=== PATIENT | male | born 1970 | race Hispanic/Latino ===

== ENCOUNTER → 2021-03-04 00:59 | Outpatient (CLI) | payer BC, SELFPAY ==
[2021-03-04 17:38] LABS: SARS-CoV-2 RNA PCR Negative
== END ==
PROVIDERS: PCP Physician Assistant; Visit Provider Internal Medicine Gastroenterology
DX: Z01.812 Encounter for preprocedural laboratory examination (principal); Z20.822 Contact with and (suspected) exposure to COVID-19
CPT/HCPCS: C9803; U0003; U0005

== ENCOUNTER 2021-03-07 00:40 | Day surgery (SDC) | payer BC, SELFPAY ==
[2021-02-18 13:06] VITALS: BMI 34.4
[2021-03-07 10:22] VITALS: BP 130/81; PULSE 72; RESP 18; TEMP 36.3; O2SAT 100; BMI 33.6
--- NOTE | 2021-03-07 10:41 | WPDGICN ---
Assessment and Plan Assessment and plan (1) Epigastric abdominal pain: Code(s): R10.13 - Epigastric pain Status: Acute Assessment and Plan: Patient has epigastric discomfort for the last 2 months. Etiology unclear. Symptoms could be related to gastritis or delayed gastric emptying. Plan is for EGD initially. Agree with trial of PPI therapy. Further recommendations will be given after endoscopy. GI Consult Note Consult date/time: 03/07/21 10:41 HPI: Michael Mcadams is a 50 year old male Presents for EGD. Patient reports for the last 2 months has had epigastric bloating and discomfort after all meals. This lasts for hours after eating food. It does not matter what food he eats. Symptoms persist. symptoms remain even if he is not eating. Patient has a past history of GE reflux disease and heartburn. He has been maintained on Nexium. Recent dose of 20 mg has been increased to40mg p.o. daily. Patient does have a history of chronic back pain for which she takes hydrocortisone on a routine basis. He denies any vomiting. He has recently noticed a small degree of nausea. Family history is noncontributory. He reports having a prior EGD many years ago that was unremarkable. Review of Systems Review of Systems: All systems reviewed & are unremarkable except as noted in HPI and below PMFSH Past Medical History Medical History Tobacco abuse Family History Family History (Updated 02/14/21 @ 11:35 by Kathrine Frost MA) Father Hypertension Mother Hypertension Diabetes mellitus Sibling Diabetes mellitus Social History Social History (Updated 02/14/21 @ 11:37 by Kathrine Frost MA) Smoking packs per day: 1 Smoking cigarettes per day: 20.0 Smoking status: Current every day smoker Tobacco type: cigarettes Alcohol intake: current Drinks per week: 1 Substance use: never Living arrangements: with family Additional occupation/education comments: [employer] Gender identity (if verbalized by the patient): Male Spiritual care concerns: No Agree to blood products: Yes Meds Home Medications and Allergies Home Medications Medication Instructions Recorded Confirmed Type esomeprazole magnesium 40 mg 40 mg PO DAILY #30 cap 02/14/21 02/18/21 Rx capsule,delayed release cyanocobalamin (vitamin B-12) 1,000 mcg BID 02/18/21 02/18/21 History ergocalciferol (vitamin D2) 1,250 mcg WEEKLY 02/18/21 02/18/21 History hydrocodone-acetaminophen 7.5 tablet PO BID PRN 02/18/21 02/18/21 History Allergies Allergy/AdvReac Type Severity Reaction Status Date / Time Penicillins Allergy Mild HIVES Verified 03/07/21 10:20 Vital Signs Vital Signs - 24 hr 03/07/21 10:22 Temperature 97.3 F L Pulse Rate 72 Respiratory Rate 18 Blood Pressure 130/81 Pulse Oximetry 100 Exam Narrative: Exam Narrative: Physical exam reveals patient be alert. Vital signs stable. HEENT exam unremarkable. Patient is anicteric. Lungs are clear to auscultation and percussion. Heart is without murmur or extra sounds. Abdominal exam bowel sounds are present soft nontender with no organomegaly. Digital external rectal exam deferred at this time.
--- NOTE | 2021-03-07 10:43 | WPDANESEPPF ---
Anes - Initial Pre Proc Eval Procedure: Operation Date: 03/07/21 11:30 Proposed Procedures p Esophagogastroduodenoscopy - Reese Maldonado MD Date/Time: 03/07/21 10:43 Surgeon: Reese Maldonado MD Pre Op Diagnosis: bloating, epigastric pain Patient Data Age: 50 Gender: M Height: 1.83 m Weight: 112.5 kg Last Vital Signs Temp 36.3 C L 03/07/21 10:22 Pulse 72 03/07/21 10:22 Resp 18 03/07/21 10:22 BP 130/81 03/07/21 10:22 Pulse Ox 100 03/07/21 10:22 Allergies Allergy/AdvReac Type Severity Reaction Status Date / Time Penicillins Allergy Mild HIVES Verified 03/07/21 10:20 Home Medications Medication Instructions Recorded Confirmed Type esomeprazole magnesium 40 mg 40 mg PO DAILY #30 cap 02/14/21 02/18/21 Rx capsule,delayed release cyanocobalamin (vitamin B-12) 1,000 mcg BID 02/18/21 02/18/21 History ergocalciferol (vitamin D2) 1,250 mcg WEEKLY 02/18/21 02/18/21 History hydrocodone-acetaminophen 7.5 tablet PO BID PRN 02/18/21 02/18/21 History Patient hx anesthesia problems: none Family hx anesthesia problems: none PMFSH Past Medical History Medical History Tobacco abuse Family History Family History Father Hypertension Mother Hypertension Diabetes mellitus Sibling Diabetes mellitus Social History Social History Smoking packs per day: 1 Smoking cigarettes per day: 20.0 Smoking status: Current every day smoker Tobacco type: cigarettes Alcohol intake: current Drinks per week: 1 Substance use: never Living arrangements: with family Additional occupation/education comments: [employer] Gender identity (if verbalized by the patient): Male Spiritual care concerns: No Agree to blood products: Yes Anes - Eval Final PreProcedure Day of Procedure 03/07/21 10:43 Patient weight: obese Heart: regular rate and rhythm Lungs: decreased breath sounds Airway: Mallampati scale class 1 Neurological: alert and oriented Last oral intake: >/= 8 hours ASA classification: III Emergent: no Anesthetic plan: proceed Anesthesia type and monitoring: general GIVS and standard monitoring Informed Consent: The patient's anesthetic plan and its attendant risks and benefits were discussed with the patient/family/POA. Questions were solicited and answers provided to the satisfaction of the patient/family/POA.
[2021-03-07] MEDS: LACTATED RINGERS 1,000 ML 150 ML IV CONT (10:50)
[2021-03-07] MEDS: BENZOCAINE (*SP) 60 ML SPRAY CAN (HURRICAINE) 1 SPRAY MUCOUS MEM (11:43)
[2021-03-07 11:58] VITALS: BP 97/54; PULSE 73; RESP 21; O2SAT 97
[2021-03-07 12:08] VITALS: BP 98/59; PULSE 70; RESP 20; O2SAT 96
[2021-03-07 12:18] VITALS: BP 100/98; PULSE 68; RESP 18; O2SAT 100
[2021-03-07 12:28] VITALS: BP 115/74; PULSE 66; RESP 17; O2SAT 100
== END 2021-03-07 12:30 | disposition home or self-care (01) ==
PROVIDERS: PCP Physician Assistant; Visit Provider Internal Medicine Gastroenterology
PROC: 0DJ08ZZ Inspection of Upper Intestinal Tract, Via Natural or Artificial Opening Endoscopic (ICD-10-PCS; CPT 43235; principal; 2021-03-07 11:30)
DX: R10.13 Epigastric pain (principal); K21.9 Gastro-esophageal reflux disease without esophagitis; F17.200 Nicotine dependence, unspecified, uncomplicated
CPT/HCPCS: 43239; 87081; J2704; J7120

== ENCOUNTER 2021-03-26 09:33 | Outpatient (CLI) | payer BC, SELFPAY ==
--- NOTE | ~2021-03-26 | NM_ITS ---
EXAM: NM gastric emptying study DATE: 03/26/2021 14:28 INDICATION: Epigastric pain TECHNIQUE: A gastric emptying study was performed using the methodology of Luz LEBLANC, et al. J Nucl Med 2007; 48:568-572. The patient was given a meal consisting of 2 scrambled eggs labeled with 1 mCi Tc-99m sulfur colloid, 2 slices of toast, two packages of jam, and approximately 120 mL of water. Si multaneous anterior and posterior 1-min images of the abdomen were obtained with the patient supine a t multiple time points over a total period of 4 hours. The geometric mean of anterior and posterior v iews was determined, and the percentage retention was calculated for each time point. COMPARISON: None. FINDINGS: Gastric retention of the radiotracer-labeled meal was 55%, 34%, and 4% at the 1-hour, 2-hour, and 4-h our time points, respectively. With this technique, apparent rapid gastric emptying is suggested by < 30% gastric retention at 1 hour. Delayed gastric emptying is defined by gastric retention of >90% at 1 hour, >60% retention at 2 hours, or >10% retention at 4 hours. IMPRESSION: 1. Normal gastric emptying. Reviewed, dictated and finalized at location A. IMPRESSION: 1. Normal gastric emptying.
== END 2021-03-26 09:34 | disposition home or self-care (01) ==
PROVIDERS: PCP Physician Assistant; Visit Provider Internal Medicine Gastroenterology
DX: R10.13 Epigastric pain (principal)
CPT/HCPCS: 78264; A9541

== ENCOUNTER 2023-12-27 14:39 | Outpatient (CLI) | payer OTHER, SELFPAY ==
--- NOTE | 2023-12-27 | ECG_ITS ---
SEE SCANNED COPY FOR CONFIRMED REPORT MTDD
[2023-12-27 15:21] LABS: Mean Corpuscular Hemoglobin 30.5 pg (26-34); Mean Corpuscular Volume 89.7 fl (80-100); Mean Platelet Volume 11.5 fl (7.4-10.4); Platelet Count Result 214 k/mm3 (150-375); Red Blood Count 5.24 M/mm3 (4.6-6.20); Red Cell Distribution Width 14.4 % (11.5-14.5); White Blood Count 7.1 K/mm3 (4.5-10.0)
[2023-12-27 15:30] LABS: Alanine Aminotransferase 18 U/L (6-50); Albumin Level 4.1 g/dL (3.5-5.1); Alkaline Phosphatase 65 U/L (38-126); Anion Gap 6 mmol/L (4-12); Aspartate Amino Transferase 21 U/L (17-59); Bilirubin,Total 0.5 mg/dL (0.2-1.3); Blood Urea Nitrogen 9 mg/dL (9-20); Carbon Dioxide 24 mmol/L (22-30); Chloride 106 mmol/L (98-107); Estimated Glomerular Filt Rate > 60; Glucose 257 mg/dL (65-110); Potassium 4.1 mmol/L (3.4-5.0); Sodium 136 mmol/L (137-145)
== END 2023-12-27 14:40 | disposition home or self-care (01) ==
PROVIDERS: PCP Physician Assistant; Visit Provider Orthopaedic Surgery
DX: Z01.818 Encounter for other preprocedural examination (principal)
CPT/HCPCS: 36415; 80053; 85027; 93005

== ENCOUNTER 2024-04-11 11:32 | Outpatient (CLI) | payer BC, SELFPAY ==
[2024-04-11 12:11] LABS: Hematocrit 44.7 % (42.0-52.0); Hemoglobin 15.1 g/dL (14.0-18.0); Mean Corpuscular HGB Conc 33.8 g/dl (32-36); Mean Corpuscular Hemoglobin 30.8 pg (26-34); Mean Corpuscular Volume 91.2 fl (80-100); Mean Platelet Volume 11.4 fl (7.4-10.4); Platelet Count Result 243 k/mm3 (150-375); Red Cell Distribution Width 14.6 % (11.5-14.5); White Blood Count 7.4 K/mm3 (4.5-10.0)
[2024-04-11 12:12] LABS: Alanine Aminotransferase 21 U/L (6-50); Albumin Level 4.2 g/dL (3.5-5.1); Alkaline Phosphatase 77 U/L (38-126); Anion Gap 7 mmol/L (4-12); Aspartate Amino Transferase 24 U/L (17-59); Bilirubin,Total 0.3 mg/dL (0.2-1.3); Blood Urea Nitrogen 16 mg/dL (9-20); Calcium 9.5 mg/dL (8.4-10.2); Carbon Dioxide 29 mmol/L (22-30); Chloride 102 mmol/L (98-107); Estimated Glomerular Filt Rate > 60; Glucose 205 mg/dL (65-110); Sodium 138 mmol/L (137-145)
== END 2024-04-11 11:33 | disposition home or self-care (01) ==
LOC: ANHLAB 11:33
PROVIDERS: PCP Physician Assistant; Visit Provider Orthopaedic Surgery
DX: Z01.818 Encounter for other preprocedural examination (principal)
CPT/HCPCS: 36415; 80053; 85027

== ENCOUNTER 2025-07-13 02:54 | Day surgery (SDC) | payer BC, SELFPAY ==
[2025-06-28 10:26] VITALS: BMI 34.6
--- OUTSIDE RECORDS SUMMARY | 2025-07-13 02:57 | XMS_ITS | Encounter Summary ---
Author Organization [facility] Health Address [address] [place] [address] Care Team Providers Care Weighmaster Name Role Phone Seven Macias MD Primary Care Provider [phone] Encounter Details Date Type Department Care Team (Late st Contact Info) Description 09/27/2024 Lab Requisition [facility] [address], [place] [id number] Simeon Guzman MD 4 [facility] [address] [place] [address] Radiculopathy, cervical region Social History Tobacco Use Types Packs/Day Years Used Date Smoking Tobacco: Never Assessed AUDIT-C Answer Date Recorded Q1: How often do you have a drink containing alcohol? Never 09/29/2024 Q2: How many drinks containi ng alcohol do you have on a typical day when you are drinking? Patient does not drink Q3: How often do you have si x or more drinks on one occasion? Never 09/29/2024 Overall Financial Resource Strain (CARDIA) Answe r Date Recorded How hard is it for you to pa y for the very basics like food, housing, medical care, and heating? Somewhat hard 09/29/2024 [facility] - Occupational Stress Questionnaire Answer Date Recorded Do you feel stress - tense, restless, nervous, or anxious, or unable to sleep at night because your mind is troubled all the time - these days? Not at all 09/29/2024 Hunger Vital Sign Answer Date Recorded Within the past 12 months, y ou worried that your food would run out before you got the money to buy more. Never true 09/29/19 25 Within the past 12 months, t he food you bought just didn't last and you didn't have money to get more. Never true 09/29/2024 PRAPARE - Transportation Answer Date Re corded In the past 12 months, has l ack of transportation kept you from medical appointments or from getting medications? No 02/2025 In the past 12 months, has l ack of transportation kept you from meetings, work, or from getting things needed for daily living? No 09/29/2024 Housing Stability Vital Sign Answer Jan e Recorded In the last 12 months, was t here a time when you were not able to pay the mortgage or rent on time? Yes 09/29/2024 In the past 12 months, how m any times have you moved where you were living? 0 09/29/2024 At any time in the past 12 m [facility], were you homeless or living in a fdc (including now)? No 09/29/2024 Sex and Gender Information Value Date Recorded Sex Assigned at Not on file Legal Sex Male 4:02 PM [employer] Gender Identity Not on file Sexual Orientation Not on file documented as of this encounter Functional Status * Functional and Cognitive Status Question Answer Date of Assessment Author Is person deaf or have vivek us hearing difficulty? No 09/29/2024 2:23 PM Luci Reid RN Is person blind or have seri ous difficulty seeing? No 09/29/2024 2:23 PM Luci Reid RN Does person have serious difficulty walking/climbing stairs? Yes 09/29/2024 2:23 PM Luci Reid RN Does person have difficulty dressing/bathing? No 09/29/2024 2:23 PM Luci Reid RN Does person have difficulty doing errands alone? No 09/29/2024 2:23 PM Luci Reid RN Does person have difficulty concentrating/remembering/making decisions? No 09/29/2024 2:23 PM Luci Reid RN * Question Answer Date of Assessment Author Q1: How often do you have a drink containing alcohol? Never 09/29/2024 6:54 AM Liliana Souza RN Q2: How many drinks containing alcohol do you have on a typical day when you are drinking? Patient does not drink 09/29/2024 6:54 AM Liliana Souza RN Q3: How often do you have six or more drinks on one occasion? Never 09/29/2024 6:54 AM Liliana Souza RN * AUDIT-C Score Answer Date of Assessment Author 0 09/29/2024 6:54 AM Ernie Souza RN documented as of this encounter Plan of Treatment Not on file documented as of this encounter Procedures Procedure Name Priority Date/Time Associated Diagnosis Comments PT PTT PANEL STAT 09/27/2024 2:49 PM [employer] Radiculopathy, cervical region CBC W AUTO DIFFERENTIAL STAT 09/27/2024 2:49 PM [employer] Radiculopathy, cervical region BASIC METABOLIC PANEL (CALCIUM TOTAL) STAT 09/27/2024 2:49 PM [employer] Radiculopathy, cervical region documented in this encounter Results * (ABNORMAL) PT PTT PANEL (09/27/2024 2:49 PM [employer] WORK[employer]) PT 12.0(L) 12.1 - 14.8 sec 09/27/2024 3:04 PM [employer] [facility] INR 0.9 0.9 - 1.1 09/27/2024 3:04 PM [employer] [facility] PTT 30.7 23.0 - 38.4 sec 09/27/2024 3:04 PM [facility] Blood BLOOD SPECIMEN / Unknown Venipuncture / Unknown 09/27/2024 2:49 PM [employer] 09/27/2024 2:51 PM [employer] Narrative [facility] - 09/27/2024 3:04 PM [employer] Conventional Warfarin Anticoagulant Therapy: INR Reference Range: 2.0-3.0 Intensive Warfarin Anticoagulant Therapy: INR Reference Range: 2.5-3.5 Heparin Therapeutic Range for PTT: 69.0 - 110.0 seconds. Simeon Guzman MD LAB - COAGULATION ORDERABLES F inal Result Performing Organization Address [facility] Co de Phone Number [facility] [address] [place] [address] * (ABNORMAL) BASIC METABOLIC PANEL (CALCIUM TOTAL) (09/27/2024 2:49 PM [employer]) Glucose 126(H) 70 - 99 mg/dL 09/27/2024 3:08 PM [facility] Sodium 137 136 - 145 mmol/L 09/27/2024 3:08 PM [facility] Potassium 4.4 3.5 - 5.1 mmol/L 09/27/2024 3:08 PM [facility] Chloride 103 98 - 107 mmol/L 09/27/2024 3:08 PM [facility] CO2 27 22 - 29 mmol/L 09/27/2024 3:08 PM [facility] Calcium 9.6 8.4 - 10.4 mg/dL 09/27/2024 3:08 PM [facility] Anion Gap 7 6 - 16 mmol/L 09/27/2024 3:08 PM [facility] BUN 12 7 - 26 mg/dL 09/27/2024 3:08 PM [facility] Creatinine 0.87 0.72 - 1.25 mg/dL 09/27/2024 3:08 PM [facility] eGFR by CKD-EPI >90 >=90 mL/min/1.7 3 m2 09/27/2024 3:08 PM [facility] Blood BLOOD SPECIMEN / Unknown Venipuncture / Unknown 09/27/2024 2:49 PM [employer] 09/27/2024 2:51 PM [facility] Simeon Guzman MD LAB - CHEMISTRY ORDERABLES Fin al Result Performing Organization Address [facility] Co de Phone Number [facility] [address] [place] [id number] * CBC WITH DIFFERENTIAL (09/27/2024 2:49 PM [employer] WORK[employer]) WBC 7.9 4.0 - 10.7 x10E9/L 09/27/2024 3:02 PM [facility] RBC Count 5.00 4.30 - 5.80 x10E12/L 09/27/2024 3:02 PM [facility] Hemoglobin 15.1 13.3 - 17.5 g/dL 09/27/2024 3:02 PM [facility] Hematocrit 44.7 38.7 - 51.1 % 09/27/2024 3:02 PM [facility] MCV 89.4 80.0 - 98.0 fL 09/27/2024 3:02 PM [facility] MCH 30.2 26.7 - 33.6 pg 09/27/2024 3:02 PM [facility] MCHC 33.8 31.7 - 36.3 g/dL 09/27/2024 3:02 PM [facility] RDW-CV 14.3 11.3 - 14.8 % 09/27/2024 3:02 PM [facility] Platelet Count 274 150 - 420 x10E9/L 09/27/2024 3:02 PM [facility] MPV 11.4 7.8 - 11.4 fL 09/27/2024 3:02 PM [facility] Neutrophil % 57.2 41.0 - 74.0 % 09/27/2024 3:02 PM [facility] Lymphocyte % 32.2 17.0 - 47.0 % 09/27/2024 3:02 PM [facility] Monocyte % 6.5 3.0 - 11.0 % 09/27/2024 3:02 PM [facility] Eosinophil % 3.4 0.0 - 7.0 % 09/27/2024 3:02 PM [facility] Basophil % 0.4 0.0 - 1.6 % 09/27/2024 3:02 PM [facility] Immature Granulocytes % 0.3 0.0 - 1.0 % 09/27/2024 3:02 PM [facility] Neutrophil Absolute 4.51 1.60 - 7.50 x10E9/L 09/27/2024 3:02 PM [facility] Lymphocyte Absolute 2.54 1.00 - 4.40 x10E9/L 09/27/2024 3:02 PM [facility] Monocyte Absolute 0.51 0.15 - 1.00 x10E9/L 09/27/2024 3:02 PM [employer] [facility] Eosinophil Absolute 0.27 0.00 - 0.60 x10E9/L 09/27/2024 3:02 PM [employer] [facility] Basophil Absolute 0.03 0.00 - 0.13 x10E9/L 09/27/2024 3:02 PM [employer] [facility] Blood BLOOD SPECIMEN / Unknown 09/27/2024 2:49 PM [employer] 09/27/2024 2:51 PM [employer] us Simeon Guzman MD LAB - HEMATOLOGY ORDERABLES Fi nal Result Performing Organization Address City/State/[facility] Co de Phone Number [facility] [address] [place], [place] [phone] documented in this encounter Visit Diagnoses Diagnosis Radiculopathy, cervical region Brachial neuritis or radiculitis nos documented in this encounter Care Teams Weighmaster Relationship Specialty [place] [address] [place] [phone] PCP - General Gastroenterology 09/04/22 documented as of this encounter
--- OUTSIDE RECORDS SUMMARY | 2025-07-13 02:57 | XMS_ITS | Data Portability ---
Author Organization [facility] Address [address] [place] [address] Assessment No assessment recorded. Plan of Treatment Reminders Order Date Submit Date Provider Last Modified By Organization Details Last Modified Time Details Appointments None recorded. Lab HbA1c (hemoglobin A1c), blood 2024 025 [email or web address] In-Office Order, Internal Use Only DO Not Attach Compendium DO Not Attach Compendium, Do Not Delete/merge, [id number] 17:27:40 drug screen, 14 drugs (detectimed ), urine 2024 025 [facility], [address] [facility], [address], [place], [address], 5 19:14:41 HbA1c (hemoglobin A1c), blood 2023 024 JIMENA In-Office Order, Internal Use Only DO Not Attach Compendium DO Not Attach Compendium, Do Not Delete/merge, [id number] 16:32:34 HbA1c (hemoglobin A1c), blood 2023 024 [email or web address] In-Office Order, Internal Use Only DO Not Attach Compendium DO Not Attach Compendium, Do Not Delete/merge, [id number] 16:21:21 HbA1c (hemoglobin A1c), blood 2022 023 [facility], [address] [facility], [address], [place], [address], 4 10:15:36 CBC 2022 023 [facility], [address] [place] [address], [address], [place], [address], 4 06:18:35 CMP, serum or plasma 2022 023 [email or web address] [address] [place] [address], [facility] [address], [place], [address], 3 10:02:46 PSA, total, serum or plasma 2022 023 [facility], [address] [place] [address], [address], [place], [address], 4 10:15:37 vitamin D, 25-hydroxy, total, serum 2022 023 [facility], [address] [place] [address], [address], [place], [address], 4 10:15:38 Referral None recorded. Procedures None recorded. Surgeries None recorded. Imaging None recorded. Medication Orders metformin 500 mg tablet 2024 025 [facility] #[id number], [address] [place], [place], [id number], 5 15:40:35 hydrocodone 10 mg-acetamin ophen 325 mg tablet 2024 025 [facility] #[id number], [address] [place], [place], [id number], 5 15:40:40 esomeprazol e magnesium 40 mg capsule,del ayed release 2024 025 [facility] #[id number], [address] [place], [place], [id number], 5 15:08:49 ciprofloxac in 500 mg tablet 2023 [facility] #49070, [address] [place], [place], [id number], 4 12:52:52 Ventolin HFA 90 mcg/actuati on aerosol inhaler 2023 [facility] #[id number], [address] [place], [place], [id number], 4 12:52:52 ibuprofen 800 mg tablet 2023 [facility] #44765, [address] [place], [place], [id number], 4 16:14:30 cyclobenzap rine 10 mg tablet 2023 [facility] #75714, [address] [place], [place], [id number], 4 16:14:29 metformin 500 mg tablet [address] [facility] #36089, [address] [place], [place], [id number], 4 16:23:11 hydrocodone 7.5 mg-acetamin ophen 325 mg tablet 2023 [facility] #[id number] [place], [place], [id number], 4 16:17:47 hydrocodone 10 mg-acetamin ophen 325 mg tablet 2023 [facility] #[id number] [place], [place], [id number], 16:21:39 Patient TargetsNo targets recorded. Patient Instructions Encounter Date Encounter Id Patient Instructions Last Modified By Organization Details Last Modified Time 06/03/2023 [id number] Quitting Tobacco : Care Instructions [email or web address] Not available 06/03/2023 16:24:05 Quitting Tobacco : Care Instructions [email or web address] Not available 06/03/2023 16:24:05 back care and preventing injuries: care instructions Not available 06/03/2023 16:24:05 gastroesophageal reflux disease (GERD): care instructions [email or web address] Not available 06/03/2023 16:24:05 high cholesterol : care instructions [email or web address] Not available 06/03/2023 16:24:05 A healthy lifest yle: care instructions [email or web address] Not available 06/03/2023 16:24:05 12/16/2023 [id number] learning about t ype 2 diabetes Not available 12/16/2023 16:14:45 type 2 diabetes: care instructions [email or web address] Not available 12/16/2023 16:14:45 03/16/2024 [id number] A healthy lifest yle: care instructions [email or web address] Not available 03/16/2024 16:14:20 Quitting Tobacco : Care Instructions [email or web address] Not available 03/16/2024 16:14:20 learning about t ype 2 diabetes [email or web address] Not available 03/16/2024 16:14:20 type 2 diabetes: care instructions [email or web address] Not available 03/16/2024 16:14:20 back care and preventing injuries: care instructions [email or web address] Not available 03/16/2024 16:14:20 08/21/2024 [id number] When You Want to Lose Weight: Care Instructions [email or web address] Not available 08/21/2024 12:52:44 A healthy lifest yle: care instructions Not available 08/21/2024 12:52:44 chronic sinusiti s: care instructions [email or web address] Not available 08/21/2024 12:52:44 high cholesterol : care instructions [email or web address] Not available 08/21/2024 12:52:44 12/14/2024 [id number] learning about t ype 2 diabetes [email or web address] Not available 12/14/2024 17:27:40 type 2 diabetes: care instructions [email or web address] Not available 12/14/2024 17:27:40 back care and preventing injuries: care instructions [email or web address] Not available 12/14/2024 15:35:37 gastroesophageal reflux disease (GERD): care instructions [email or web address] Not available 12/14/2024 15:35:37 high cholesterol : care instructions [email or web address] Not available 12/14/2024 15:35:37 When You Want to Lose Weight: Care Instructions [email or web address] Not available 12/14/2024 15:35:37 Reason for Referral None Reported. Results Created Date Observation Date Name Description Value Unit Range Abnormal Flag Note LastModifiedBy Organization Detail LastModifiedTime 09/16/19 24 09/16/2023 COMP. METAB OLIC PANEL (14) glucose 196 mg/dL 70-99 above high normal Not Available [facility] [address] [place] [address], [address], 09/17/2023 06:18:35 09/16/19 24 09/16/2023 COMP. METAB OLIC PANEL (14) BUN 9 mg/dL 6-24 Not Available [facility] [address] [place], [address], 09/17/2023 06:18:35 09/16/19 24 09/16/2023 COMP. METAB OLIC PANEL (14) creatinine 0.79 mg/dL 0.76-1 .27 Not Available [facility] [address] [place], [address], 09/17/2023 06:18:35 09/16/1909/16/2023 COMP. METAB OLIC PANEL (14) eGFR 107 >=60 Units for eGFR value s are mL/mi n/1.7 3 The eGFR Calcu latio n has not been valid ated for patie nts under the age of 18. If test resul ts are displ ayed for a patie nt under the age of 18, disre anabell that value . Not Available [facility] [address] [place], [address], 09/17/2023 06:18:35 09/16/19 24 09/16/2023 COMP. METAB OLIC PANEL (14) BUN/creatini ne ratio 12 9-20 Not Available [facility] [address] [place] [address], [address], 09/17/2023 06:18:35 09/16/19 24 09/16/2023 COMP. METAB OLIC PANEL (14) sodium 138 mmol/ L 134-14 4 Not Available [facility] [address] [place] [address], [address], 09/17/2023 06:18:35 09/16/19 24 09/16/2023 COMP. METAB OLIC PANEL (14) potassium 4.0 mmol/ L 3.5-5. 2 Not Available [facility] [address] [place] [address], [address], 09/17/2023 06:18:35 09/16/19 24 09/16/2023 COMP. METAB OLIC PANEL (14) chloride 102 mmol/ L 96-106 Not Available [facility] [address] [place] [address], [address], 09/17/2023 06:18:35 09/16/19 24 09/16/2023 COMP. METAB OLIC PANEL (14) carbon dioxide, total 25 mmol/ L 20-29 Not Available [facility] [address] [place] [address], [address], 09/17/2023 06:18:35 09/16/19 24 09/16/2023 COMP. METAB OLIC PANEL (14) calcium 9.5 mg/dL 8.7-10 .2 Not Available [facility] [address] [place] [address], [id number], 09/17/2023 06:18:35 09/16/19 24 09/16/2023 COMP. METAB OLIC PANEL (14) protein, total 7.0 g/dL 6.0-8. 5 Not Available [facility] [address] [place], [address], 09/17/2023 06:18:35 09/16/19 24 09/16/2023 COMP. METAB OLIC PANEL (14) albumin 4.2 g/dL 3.8-4. 9 Not Available [facility] [address] [place], [address], 09/17/2023 06:18:35 09/16/19 24 09/16/2023 COMP. METAB OLIC PANEL (14) globulin, total 2.8 g/dL 1.5-4. 5 Not Available [facility] [address] [place], [address], 09/17/2023 06:18:35 09/16/19 24 09/16/2023 COMP. METAB OLIC PANEL (14) A/G ratio 1.0 1.2-2. 2 below low normal Not Available [facility] [address] [place], [address], 09/17/2023 06:18:35 09/16/19 24 09/16/2023 COMP. METAB OLIC PANEL (14) bilirubin, total 0.3 mg/dL 0.0-1. 2 Not Available [facility] [address] [place], [address], 09/17/2023 06:18:35 09/16/19 24 09/16/2023 COMP. METAB OLIC PANEL (14) alkaline phosphatase 68 IU/L 44-121 Not Available [facility] Department [address] [place], [address], 09/17/2023 06:18:35 09/16/19 24 09/16/2023 COMP. METAB OLIC PANEL (14) AST (SGOT) 12 IU/L 0-40 Not Available [facility] [address] [place], [address], 09/17/2023 06:18:35 09/16/19 24 09/16/2023 COMP. METAB OLIC PANEL (14) ALT (SGPT) 13 IU/L 0-44 Not Available [facility] [address] [place] [address], [address], 09/17/2023 06:18:35 09/16/19 24 09/16/2023 CBC, PLATE LET, NO DIFFE RENTI AL WBC 7.7 x10e3 /uL 3.4-10 .8 Not Available [facility] [address] [place] [address], [address], 09/17/2023 06:18:35 09/16/1909/16/2023 CBC, PLATE LET, NO DIFFE RENTI AL RBC 5.28 x10e6 /uL 4.14-5 .80 Not Available [facility] [address] [place] [address], [address], 09/17/2023 06:18:35 09/16/19 24 09/16/2023 CBC, PLATE LET, NO DIFFE RENTI AL hemoglobin 15.4 g/dL 13.0-1 7.7 Not Available [facility] [address] [place] [address], [address], 09/17/2023 06:18:35 09/16/19 24 09/16/2023 CBC, PLATE LET, NO DIFFE RENTI AL hematocrit 47.5 % 37.5-5 1.0 Not Available [facility] [address] [place] [address], [address], 09/17/2023 06:18:35 09/16/1909/16/2023 CBC, PLATE LET, NO DIFFE RENTI AL MCV 90 fL 79-97 Not Available [facility] [address] [place] [address], [address], 09/17/2023 06:18:35 09/16/1909/16/2023 CBC, PLATE LET, NO DIFFE RENTI AL MCH 29.2 pg 26.6-3 3.0 Not Available [facility] [address] [place], [address], 09/17/2023 06:18:35 09/16/1909/16/2023 CBC, PLATE LET, NO DIFFE RENTI AL MCHC 32.4 g/dL 31.5-3 5.7 Not Available [facility] [address] [place], [address], 09/17/2023 06:18:35 09/16/19 24 09/16/2023 CBC, PLATE LET, NO DIFFE RENTI AL RDW 14.3 % 11.5-1 4.5 Not Available [facility] [address] [place], [address], 09/17/2023 06:18:35 09/16/19 24 09/16/2023 CBC, PLATE LET, NO DIFFE RENTI AL platelets 243 x10e3 /uL 150-45 0 Mean Plate let Volum e 12.0 fL 8.9-1 2.7 N Not Available [facility] [address] [place], [address], 09/17/2023 06:18:35 09/16/19 24 09/16/2023 CBC, PLATE LET, NO DIFFE RENTI AL NRBC 0 % 0-0 Not Available [facility] [address] [place], [address], 09/17/2023 06:18:35 09/16/1909/17/2023 HEMOG LOBIN A1C hemoglobin A1C 8.7 % 4.8-5. 6 above high normal Predi abete s: 5.7 - 6.4 Diabe anastasia: >6.4 Glyce keny contr ol for adult s with diabe anastasia: <7.0 Not Available [facility] ([facility]) [address] [facility], [place], [address], 09/17/2023 10:15:36 09/16/1909/17/2023 PROST ATE-S PECIF IC AG prostate specific Ag 0.6 NG/mL 0.0-4. 0 Taiwo ECLIA metho dolog y. Accor ding to the Ameri can Urolo gical Assoc iatio n, Serum PSA shoul d decre ase and remai n at undet ectab le level s after radic al prost atect erum. The AUA defin es bioch emica l recur rence as an initi al PSA value 0.2 ng/mL or great er follo wed by a subse quent confi rmato ry PSA value 0.2 ng/mL or great er. Value s obtai laurita with diffe rent assay metho ds or kits canno t be used inter [place] eably . Resul ts canno t be inter prete d as absol [place] evide nce of the prese nce or absen ce of [facility] bis[facility] se. Not Available [facility] ([facility]) [address] [facility], [place], [address], 09/17/2023 10:15:37 09/16/19 24 09/17/2023 VITAM IN D, 25-HY DROXY vitamin D, 25-hydroxy 20.0 NG/mL 30.0-1 00.0 below low normal Vitam in D defic iency has been defin ed by the Insti tute of Medic ine and an Endoc rine Socie ty pract ice guide line as a level of serum 25-OH vitam in D less than 20 ng/mL (1,2) . The Endoc rine Socie ty went on to furth er defin e vitam in D insuf ficie ncy as a level betwe en 21 and 29 ng/mL (2). 1. IOM (Inst itute of Medic ine). 2009. Dieta ry refer ence intak es for calci um and D. Vasyl topete [place]: The Natio nal [facility] Press . 2. Chris torrez MF, Alber plascencia [place], Natividad off-F errar i LEBLANC, et al. Evalu ation , treat ment, and preve ntion of vitam in D defic iency : an Endoc rine Socie ty clini betito pract ice guide line. JCEM. 2010; 96(7) :1911 -30. Not Available [facility] ([facility]) [address] [facility], [place], [address], 09/17/2023 10:15:38 09/16/19 24 09/17/2023 DIABE ANASTASIA PATIE NT EDUCA TION pdf . Not Available [facility] ([facility]) [address] [facility], [place], [address], 09/17/2023 10:15:35 12/03/19 24 12/10/2023 COMPL IANCE DRUG KYM SIS, UR summary report (summary) FINAL ===== ===== ===== ===== ===== ===== ===== ===== ===== ===== ===== ===== ===== === TOXAS SURE COMP DRUG KYM SIS,U R ===== ===== ===== ===== ===== ===== ===== ===== ===== ===== ===== ===== ===== === Test Resul t Flag Units Drug Prese nt [place] codon e 514 ng/mg creat [place] morph one 148 ng/mg creat Dihyd rocod eine 111 ng/mg creat Norhy droco done 397 ng/mg creat Sourc es of hydro codon e inclu de sched uled presc ripti on medic ation s. [place] morph one, dihyd rocod eine and norhy droco done are expec tawana metab olite s of hydro codon e. [place] morph one and dihyd rocod eine are also avail able as sched uled presc ripti on medic ation s. Aceta minop hen PRESE NT ===== ===== ===== ===== ===== ===== ===== ===== ===== ===== ===== ===== ===== === Test Resul t Flag Units Ref Range Creat inine 145 mg/dL >=20 ===== ===== ===== ===== ===== ===== ===== ===== ===== ===== ===== ===== ===== === Decla red Medic ation s: Medic ation list was not provi ded. ===== ===== ===== ===== ===== ===== ===== ===== ===== ===== ===== ===== ===== === For clini betito consu ltati on, pleas e call . ===== ===== ===== ===== ===== ===== ===== ===== ===== ===== ===== ===== ===== === Not Available [facility] ([facility]) [address] [facility], [place], [address], 12/10/2023 13:12:36 12/03/19 24 12/10/2023 COMPL IANCE DRUG KYM SIS, UR pdf . Not Available [facility] ([facility]) [address] [place], [address], 12/10/2023 13:12:36 12/16/19 24 12/16/2023 HbA1c (hemo globi n A1c), blood HbA1c 8.6 Not Available In-Office Order Internal Use Only DO Not Attach Compendium DO Not Attach Compendium, Do Not Delete/merge, [id number] 12/16/2023 16:18:52 03/16/20 24 03/16/2024 HbA1c (hemo globi n A1c), blood HbA1c 8.6% Not Available In-Office Order Internal Use Only DO Not Attach Compendium DO Not Attach Compendium, Do Not Delete/merge, [id number] 03/16/2024 16:14:33 09/27/19 25 09/27/2024 CBC W Auto Diffe renti al panel - Blood hemoglobin [mass/volume ] in blood 15.1 g/dL low: 13.3g/ dLhigh : 17.5g/ dL Not Available Not Available 03/02/2025 10:53:19 09/27/19 25 09/27/2024 CBC W Auto Diffe renti al panel - Blood hematocrit [volume fraction] of blood by automated count 44.7 % low: 38.7%h igh: 51.1% Not Available Not Available 03/02/2025 10:53:19 09/27/1909/27/2024 CBC W Auto Diffe renti al panel - Blood MCV [entitic mean volume] in red blood cells by automated count 89.4 fL low: 80fLhi gh: 98fL Not Available Not Available 03/02/2025 10:53:19 09/27/1909/27/2024 CBC W Auto Diffe bayronti al panel - Blood MCH [entitic mass] by automated count 30.2 pg low: 26.7pg high: 33.6pg Not Available Not Available 03/02/2025 10:53:19 09/27/1909/27/2024 CBC W Auto Diffe renti al panel - Blood MCHC [entitic mass/volume] in red blood cells by automated count 33.8 g/dL low: 31.7g/ dLhigh : 36.3g/ dL Not Available Not Available 03/02/2025 10:53:19 09/27/19 25 09/27/2024 CBC W Auto Diffe renti al panel - Blood erythrocyte [distwidth] in red blood cells by automated count 14.3 % low: 11.3%h igh: 14.8% Not Available Not Available 03/02/2025 10:53:09/27/1909/27/2024 CBC W Auto Diffe renti al panel - Blood platelet [entitic mean volume] in blood by automated count 11.4 fL low: 7.8fLh igh: 11.4fL Not Available Not Available 03/02/2025 10:53:19 09/27/19 25 09/27/2024 CBC W Auto Diffe renti al panel - Blood neutrophils/ leukocytes in blood by automated count 57.2 % low: 41%hig h: 74% Not Available Not Available 03/02/2025 10:53:19 09/27/19 25 09/27/2024 CBC W Auto Diffe renti al panel - Blood lymphocytes/ leukocytes in blood by automated count 32.2 % low: 17%hig h: 47% Not Available Not Available 03/02/2025 10:53:19 09/27/19 25 09/27/2024 CBC W Auto Diffe renti al panel - Blood monocytes/le ukocytes in blood by automated count 6.5 % low: 3%high : 11% Not Available Not Available 03/02/2025 10:53:19 09/27/19 25 09/27/2024 CBC W Auto Diffe renti al panel - Blood eosinophils/ leukocytes in blood by automated count 3.4 % low: 0%high : 7% Not Available Not Available 03/02/2025 10:53:19 09/27/19 25 09/27/2024 CBC W Auto Diffe renti al panel - Blood basophils/le ukocytes in blood by automated count 0.4 % low: 0%high : 1.6% Not Available Not Available 03/02/2025 10:53:19 09/27/19 25 09/27/2024 CBC W Auto Diffe renti al panel - Blood immature granulocytes /leukocytes in blood by automated count 0.3 % low: 0%high : 1% Not Available Not Available 03/02/2025 10:53:19 09/27/19 25 09/27/2024 CBC W Auto Diffe renti al panel - Blood interpretati on and review of laboratory results Normal Not Available Not Available 02/20 10:53:19 09/27/19 25 09/27/2024 PT and aPTT panel - Plate let poor plasm a by Co[place] latio n assay prothrombin time (PT) 12 text: 12.1 - 14.8 sec low PT 12.0 (L) 12.1 - 14.8 sec 09/27 3:04 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 [facility] Not Available Not Available 11/13/2024 16:30:12 09/27/19 25 09/27/2024 PT and aPTT panel - Plate let poor plasm a by [place]agu latio n assay INR in platelet poor plasma by coagulation assay 0.9 low: 0.9hig h: 1.1 INR 0.9 0.9 - 1.1 09/27 3:04 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 [facility] Not Available Not Available 11/13/2024 16:30:12 09/27/19 25 09/27/2024 PT and aPTT panel - Plate let poor plasm a by [place]agu latio n assay APTT in platelet poor plasma by coagulation assay 30.7 text: 23.0 - 38.4 sec PTT 30.7 23.0 - 38.4 sec 09/27 3:04 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 [facility] Not Available Not Available 11/13/2024 16:30:12 09/27/1909/27/2024 PT and aPTT panel - Plate let poor plasm a by Coagu latio n assay Unknown Analyte Conven tional Warfar in Antico agulan t Therap y: INR Refere nce Range: 2.0-3. 0 Intens tushar Warfar in Antico agulan t Therap y: INR Refere nce Range: 2.5-3. 5 Hepari n Therap eutic Range for PTT: 69.0 - 110.0 second s. Conve ntion al Warfa rin Antic oagul ant Thera py: INR Refer ence Range : 2.0-3 .0 Inten sive Warfa rin Antic oagul ant Thera py: INR Refer ence Range : 2.5-3 .5 Hepar in Thera peuti c Range for PTT: 69.0 - 110.0 secon ds. Not Available Not Available 11/13/2024 16:30:12 09/27/1909/27/2024 PT and aPTT panel - Plate let poor plasm a by Coagu latio n assay interpretati on and review of laboratory results Abnorm al Not Available Not Available 16:30:12 09/27/19 25 09/27/2024 Basic metab olic 2000 panel - Serum or Plasm a glucose [mass/volume ] in serum or plasma 126 mg/dL low: 70mg/d Lhigh: 99mg/d L high Gluco se 126 (H) 70 - 99 mg/dL 09/27 3:08 PM [facility] Not Available Not Available 11/13/2024 16:30:11 09/27/19 25 09/27/2024 Basic metab olic 1999 panel - Serum or Plasm a sodium [moles/volum e] in serum or plasma 137 mmol/ L low: 136mmo l/Lhig h: 145mmo l/L Sodiu m 137 136 - 145 mmol/ L 09/27 3:08 PM [facility] Not Available Not Available 11/13/2024 16:30:11 09/27/19 25 09/27/2024 Basic metab olic 1999 panel - Serum or Plasm a potassium [moles/volum e] in serum or plasma 4.4 mmol/ L low: 3.5mmo l/Lhig h: 5.1mmo l/L Potas sium 4.4 3.5 - 5.1 mmol/ L 09/27 3:08 PM [facility] Not Available Not Available 11/13/2024 16:30:11 09/27/19 25 09/27/2024 Basic metab olic 1999 panel - Serum or Plasm a chloride [moles/volum e] in serum or plasma 103 mmol/ L low: 98mmol /Lhigh : 107mmo l/L Chlor marcelina 103 98 - 107 mmol/ L 09/27 3:08 PM [facility] Not Available Not Available 11/13/2024 16:30:11 09/27/19 25 09/27/2024 Basic metab olic 1999 panel - Serum or Plasm a carbon dioxide, total [moles/volum e] in serum or plasma 27 mmol/ L low: 22mmol /Lhigh : 29mmol /L CO2 27 22 - 29 mmol/ L 09/27 3:08 PM [facility] Not Available Not Available 11/13/2024 16:30:11 09/27/19 25 09/27/2024 Basic metab olic 2000 panel - Serum or Plasm a calcium [mass/volume ] in serum or plasma 9.6 mg/dL low: 8.4mg/ dLhigh : 10.4mg /dL Calci um 9.6 8.4 - 10.4 mg/dL 09/27 3:08 PM [facility] Not Available Not Available 11/13/2024 16:30:11 09/27/1909/27/2024 Basic metab olic 2000 panel - Serum or Plasm a anion gap in blood 7 mmol/ L low: 6mmol/ Lhigh: 16mmol /L Anion Gap 7 6 - 16 mmol/ L 09/27 3:08 PM [facility] Not Available Not Available 11/13/2024 16:30:11 09/27/1909/27/2024 Basic [employer] o[employer] 2000 panel - Serum or Plasm a urea nitrogen [mass/volume ] in serum or plasma 12 mg/dL low: 7mg/dL high: 26mg/d L BUN 12 7 - 26 mg/dL 09/27 3:08 PM [facility] Not Available Not Available 11/13/2024 16:30:11 09/27/1909/27/2024 Basic metab olic 2000 panel - Serum or Plasm a creatinine [mass/volume ] in serum or plasma 0.87 mg/dL low: 0.72mg /dLhig h: 1.25mg /dL Creat inine 0.87 0.72 - 1.25 mg/dL 09/27 3:08 PM [facility] Not Available Not Available 11/13/2024 16:30:11 09/27/1909/27/2024 Basic [employer] 2000 panel - Serum or Plasm a glomerular filtration rate/1.73 sq M.predicted [volume rate/area] in serum, plasma or blood by creatinine-b ased formula (CKD-epi 2020) text: >=90 mL/min /1.73 m2 eGFR by CKD-E PI >90 >=90 mL/mi n/1.7 3 m2 09/27 3:08 PM [facility] Not Available Not Available 11/13/2024 16:30:11 09/27/19 25 09/27/2024 Basic [employer] 2000 panel - Serum or Plasm a interpretati on and review of laboratory results Abnorm al Not Available Not Available 16:30:11 09/29/19 25 09/29/2024 Gluco se [Mass /volu me] in Arter ial blood glucose [mass/volume ] in capillary blood by glucometer 235 mg/dL low: 70mg/d Lhigh: 99mg/d L high Not Available Not Available 03/02/2025 10:53:19 09/29/19 25 09/29/2024 Gluco se [Mass /volu me] in Arter ial blood specimen source identified Cap Finger stick Not Available Not Available 10:53:19 09/29/19 25 09/29/2024 Gluco se [Mass /volu me] in Arter ial blood interpretati on and review of laboratory results Abnorm al Not Available Not Available 10:53:19 09/29/19 25 09/29/2024 Gluco se [Mass /volu me] in Arter ial blood glucose [mass/volume ] in capillary blood by glucometer 235 mg/dL low: 70mg/d Lhigh: 99mg/d L high Not Available Not Available 03/02/2025 10:53:19 09/29/19 25 09/29/2024 Gluco se [Mass /volu me] in Arter ial blood specimen source identified Cap Finger stick Not Available Not Available 10:53:19 09/29/19 25 09/29/2024 Gluco se [Mass /volu me] in Arter ial blood interpretati on and review of laboratory results Abnorm al Not Available Not Available 10:53:19 09/29/19 25 09/29/2024 Gluco se [Mass /volu me] in Arter ial blood glucose [mass/volume ] in capillary blood by glucometer 235 mg/dL low: 70mg/d Lhigh: 99mg/d L high Gluco se WB/PO C 235 (H) 70 - 99 mg/dL 09/29 5:39 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 [facility] Not Available Not Available 11/13/2024 16:30:04 09/29/19 25 09/29/2024 Gluco se [Mass /volu me] in Arter ial blood specimen source identified Cap Finger stick Speci men Type Cap Finge rstic k 09/29 5:39 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 [facility] Not Available Not Available 11/13/2024 16:30:04 09/29/19 25 09/29/2024 Gluco se [Mass /volu me] in Arter ial blood interpretati on and review of laboratory results Abnorm al Not Available Not Available 16:30:04 09/29/19 25 09/29/2024 Gluco se [Mass /volu me] in Arter ial blood glucose [mass/volume ] in capillary blood by glucometer 201 mg/dL low: 70mg/d Lhigh: 99mg/d L high Not Available Not Available 03/02/2025 10:53:19 09/29/19 25 09/29/2024 Gluco se [Mass /volu me] in Arter ial blood specimen source identified Arteri al Not Available Not Available 10:53:19 09/29/19 25 09/29/2024 Gluco se [Mass /volu me] in Arter ial blood interpretati on and review of laboratory results Abnorm al Not Available Not Available 10:53:19 09/29/19 25 09/29/2024 Gluco se [Mass /volu me] in Arter ial blood glucose [mass/volume ] in capillary blood by glucometer 201 mg/dL low: 70mg/d Lhigh: 99mg/d L high Not Available Not Available 03/02/2025 10:53:19 09/29/19 25 09/29/2024 Gluco se [Mass /volu me] in Arter ial blood specimen source identified Arteri al Not Available Not Available 10:53:19 09/29/19 25 09/29/2024 Gluco se [Mass /volu me] in Arter ial blood interpretati on and review of laboratory results Abnorm al Not Available Not Available 10:53:19 09/29/19 25 09/29/2024 Gluco se [Mass /volu me] in Arter ial blood glucose [mass/volume ] in capillary blood by glucometer 201 mg/dL low: 70mg/d Lhigh: 99mg/d L high Gluco se WB/PO C 201 (H) 70 - 99 mg/dL 09/29 4:24 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 [facility] Not Available Not Available 11/13/2024 16:30:04 09/29/19 25 09/29/2024 Gluco se [Mass /volu me] in Arter ial blood specimen source identified Arteri al Speci men Type Arter ial 09/29 4:24 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 [facility] Not Available Not Available 11/13/2024 16:30:04 09/29/19 25 09/29/2024 Gluco se [Mass /volu me] in Arter ial blood interpretati on and review of laboratory results Abnorm al Not Available Not Available 16:30:04 09/29/19 25 09/29/2024 Gluco se [Mass /volu me] in Arter ial blood glucose [mass/volume ] in capillary blood by glucometer 199 mg/dL low: 70mg/d Lhigh: 99mg/d L high Not Available Not Available 03/02/2025 10:53:19 09/29/19 25 09/29/2024 Gluco se [Mass /volu me] in Arter ial blood specimen source identified Cap Finger stick Not Available Not Available 10:53:19 09/29/19 25 09/29/2024 Gluco se [Mass /volu me] in Arter ial blood interpretati on and review of laboratory results Abnorm al Not Available Not Available 10:53:19 09/29/19 25 09/29/2024 Gluco se [Mass /volu me] in Arter ial blood glucose [mass/volume ] in capillary blood by glucometer 199 mg/dL low: 70mg/d Lhigh: 99mg/d L high Not Available Not Available 03/02/2025 10:53:19 09/29/19 25 09/29/2024 Gluco se [Mass /volu me] in Arter ial blood specimen source identified Cap Finger stick Not Available Not Available 10:53:19 09/29/19 25 09/29/2024 Gluco se [Mass /volu me] in Arter ial blood interpretati on and review of laboratory results Abnorm al Not Available Not Available 10:53:19 09/29/19 25 09/29/2024 Gluco se [Mass /volu me] in Arter ial blood glucose [mass/volume ] in capillary blood by glucometer 199 mg/dL low: 70mg/d Lhigh: 99mg/d L high Gluco se WB/PO C 199 (H) 70 - 99 mg/dL 09/29 11:40 AM 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 [facility] Not Available Not Available 11/13/2024 16:30:04 09/29/19 25 09/29/2024 Gluco se [Mass /volu me] in Arter ial blood specimen source identified Cap Finger stick Speci men Type Cap Finge rstic k 09/29 11:40 AM 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 Not Available Not Available 11/13/2024 16:30:04 09/29/19 25 09/29/2024 Gluco se [Mass /volu me] in Arter ial blood interpretati on and review of laboratory results Abnorm al Not Available Not Available 16:30:04 09/29/19 25 09/29/2024 Gluco se [Mass /volu me] in Arter ial blood glucose [mass/volume ] in capillary blood by glucometer 110 mg/dL low: 70mg/d Lhigh: 99mg/d L high Not Available Not Available 03/02/2025 10:53:19 09/29/19 25 09/29/2024 Gluco se [Mass /volu me] in Arter ial blood specimen source identified Cap Finger stick Not Available Not Available 10:53:19 09/29/19 25 09/29/2024 Gluco se [Mass /volu me] in Arter ial blood interpretati on and review of laboratory results Abnorm al Not Available Not Available 10:53:19 09/29/19 25 09/29/2024 Gluco se [Mass /volu me] in Arter ial blood glucose [mass/volume ] in capillary blood by glucometer 110 mg/dL low: 70mg/d Lhigh: 99mg/d L high Not Available Not Available 03/02/2025 10:53:19 09/29/19 25 09/29/2024 Gluco se [Mass /volu me] in Arter ial blood specimen source identified Cap Finger stick Not Available Not Available 10:53:19 09/29/19 25 09/29/2024 Gluco se [Mass /volu me] in Arter ial blood interpretati on and review of laboratory results Abnorm al Not Available Not Available 10:53:19 09/29/19 25 09/29/2024 Gluco se [Mass /volu me] in Arter ial blood glucose [mass/volume ] in capillary blood by glucometer 110 mg/dL low: 70mg/d Lhigh: 99mg/d L high Gluco se WB/PO C 110 (H) 70 - 99 mg/dL 09/29 7:10 AM 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 [facility] Not Available Not Available 11/13/2024 16:30:04 09/29/19 25 09/29/2024 Gluco se [Mass /volu me] in Arter ial blood specimen source identified Cap Finger stick Speci men Type Cap Finge rstic k 09/29 7:10 AM 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 [facility] Not Available Not Available 11/13/2024 16:30:04 09/29/19 25 09/29/2024 Gluco se [Mass /volu me] in Arter ial blood interpretati on and review of laboratory results Abnorm al Not Available Not Available 16:30:04 10/04/19 25 10/04/2024 Preal bumin [Mass /volu me] in Serum or Plasm a prealbumin [mass/volume ] in serum or plasma by nephelometry 24 mg/dL low: 18mg/d Lhigh: 45mg/d L Preal bumin 24.0 18.0 - 45.0 mg/dL 10/04 1:11 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 [facility] Not Available Not Available 11/13/2024 16:30:02 10/04/19 25 10/04/2024 Preal bumin [Mass /volu me] in Serum or Plasm a interpretati on and review of laboratory results Normal Not Available Not Available 10/22 16:30:02 10/04/19 25 10/04/2024 C react tushar prote in [Mass /volu me] in Serum or Plasm a C reactive protein [mass/volume ] in serum or plasma 1.93 mg/dL high: 0.5mg/ dL high [place] ctive Prote in 1.93 (H) <=0.5 0 mg/dL 10/04 1:09 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 [facility] Not Available Not Available 11/13/2024 16:30:02 10/04/19 25 10/04/2024 C react tushar prote in [Mass /volu me] in Serum or Plasm a interpretati on and review of laboratory results Abnorm al Not Available Not Available 16:30:02 10/04/19 25 10/04/2024 Eryth rocyt e sedim entat ion rate by Augustin menjivar metho kassidy erythrocyte sedimentatio n rate by photometric method 13 text: 0 - 20 mm/HR Eryth rocyt e Sedim entat ion Rate Autom ated 13 0 - 20 MM/HR 10/04 12:52 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 [facility] [employer] AT[facility] Not Available Not Available 11/13/2024 16:30:02 10/04/19 25 10/04/2024 Eryth rocyt e sedim entat ion rate by Augustin rosso kassidy interpretati on and review of laboratory results Normal Not Available Not Available 10/22 16:30:02 10/04/19 25 10/04/2024 Compr ehens tushar metab olic 1999 panel - Serum or Plasm a glucose [mass/volume ] in serum or plasma 174 mg/dL low: 70mg/d Lhigh: 99mg/d L high Gluco se 174 (H) 70 - 99 mg/dL 10/04 1:08 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 [employer] AT[facility] Not Available Not Available 11/13/2024 16:30:01 10/04/19 25 10/04/2024 Compr ehens tushar metab olic 1999 panel - Serum or Plasm a sodium [moles/volum e] in serum or plasma 134 mmol/ L low: 136mmo l/Lhig h: 145mmo l/L low Sodiu m 134 (L) 136 - 145 mmol/ L 10/04 1:08 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 [facility] [employer] AT[facility] Not Available Not Available 11/13/2024 16:30:01 10/04/19 25 10/04/2024 Compr ehens tushar metab olic 1999 panel - Serum or Plasm a potassium [moles/volum e] in serum or plasma 4 mmol/ L low: 3.5mmo l/Lhig h: 5.1mmo l/L Potas sium 4.0 3.5 - 5.1 mmol/ L 10/04 1:08 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 [facility] Not Available Not Available 11/13/2024 16:30:01 10/04/19 25 10/04/2024 Compr ehens tushar metab olic 1999 panel - Serum or Plasm a chloride [moles/volum e] in serum or plasma 101 mmol/ L low: 98mmol /Lhigh : 107mmo l/L Chlor marcelina 101 98 - 107 mmol/ L 10/04 1:08 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 [employer] [facility] Not Available Not Available 11/13/2024 16:30:01 10/04/19 25 10/04/2024 Compr ehens tushar metab olic 1999 panel - Serum or Plasm a carbon dioxide, total [moles/volum e] in serum or plasma 26 mmol/ L low: 22mmol /Lhigh : 29mmol /L CO2 26 22 - 29 mmol/ L 10/04 1:08 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 [employer] Not Available Not Available 11/13/2024 16:30:01 10/04/19 25 10/04/2024 Compr ehens tushar metab olic 1999 panel - Serum or Plasm a calcium [mass/volume ] in serum or plasma 9.5 mg/dL low: 8.4mg/ dLhigh : 10.4mg /dL Calci um 9.5 8.4 - 10.4 mg/dL 10/04 1:08 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 [employer] Not Available Not Available 11/13/2024 16:30:01 10/04/19 25 10/04/2024 Compr ehens tushar metab olic 1999 panel - Serum or Plasm a anion gap in blood 7 mmol/ L low: 6mmol/ Lhigh: 16mmol /L Anion Gap 7 6 - 16 mmol/ L 10/04 1:08 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 [employer] [facility] Not Available Not Available 11/13/2024 16:30:01 10/04/19 25 10/04/2024 Compr ehens tushar metab olic 2000 panel - Serum or Plasm a urea nitrogen [mass/volume ] in serum or plasma 11 mg/dL low: 7mg/dL high: 26mg/d L BUN 11 7 - 26 mg/dL 10/04 1:08 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 [facility] Not Available Not Available 11/13/2024 16:30:01 10/04/19 25 10/04/[address]24 Com[address] ens tushar metab [facility] 1999 panel - Serum or Plasm a creatinine [mass/volume ] in serum or plasma 0.9 mg/dL low: 0.72mg /dLhig h: 1.25mg /dL Creat inine 0.90 0.72 - 1.25 mg/dL 10/04 1:08 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 [facility] Not Available Not Available 11/13/2024 16:30:01 10/04/19 25 10/04/[address] Com[address] tushar metab [facility] 1999 panel - Serum or Plasm a alkaline phosphatase [enzymatic activity/vol ume] in serum or plasma 60 U/L low: 40U/Lh igh: 150U/L Alkal ine Phosp hatas e 60 40 - 150 U/L 10/04 1:08 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 [facility] Not Available Not Available 11/13/2024 16:30:01 10/04/19 25 10/04/[address] tushar metab [facility] 1999 panel - Serum or Plasm a alanine aminotransfe rase [enzymatic activity/vol ume] in serum or plasma 17 U/L low: 0U/Lhi gh: 55U/L ALT 17 0 - 55 U/L 10/04 1:08 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 [facility] Not Available Not Available 11/13/2024 16:30:01 10/04/19 25 10/04/2024 Compr ehens tushar metab olic 1999 panel - Serum or Plasm a aspartate aminotransfe rase [enzymatic activity/vol ume] in serum or plasma 14 U/L low: 5U/Lhi gh: 34U/L AST 14 5 - 34 U/L 10/04 1:08 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 [facility] Not Available Not Available 11/13/2024 16:30:01 10/04/19 25 10/04/2024 Compr ehens tushar metab [employer] 1999 panel - Serum or Plasm a protein [mass/volume ] in serum or plasma 7 text: 6.4 - 8.3 gm/dL Prote in Total 7.0 6.4 - 8.3 gm/dL 10/04 1:08 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 [facility] Not Available Not Available 11/13/2024 16:30:01 10/04/19 25 10/04/2024 Compr barter.liens tushar [employer] 1999 panel - Serum or Plasm a albumin [mass/volume ] in serum or plasma 3.4 text: 3.4 - 5.0 gm/dL Album in 3.4 3.4 - 5.0 gm/dL 10/04 1:08 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 [facility] Not Available Not Available 11/13/2024 16:30:01 10/04/19 25 10/04/2024 Compr Propers [employer] panel - Serum or Plasm a bilirubin.to hilda [mass/volume ] in serum or plasma 0.2 mg/dL low: 0.2mg/ dLhigh : 1.2mg/ dL Bilir ubin Total 0.2 0.2 - 1.2 mg/dL 10/04 1:08 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 [facility] Not Available Not Available 11/13/2024 16:30:01 10/04/19 25 10/04/2024 Compr Propers tusharElias Borges [employer] 2000 panel - Serum or Plasm a glomerular filtration rate/1.73 sq M.predicted [volume rate/area] in serum, plasma or blood by creatinine-b ased formula (CKD-epi 2020) text: >=90 mL/min /1.73 m2 eGFR by CKD-E PI >90 >=90 mL/mi n/1.7 3 m2 10/04 1:08 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 [facility] Not Available Not Available 11/13/2024 16:30:01 10/04/19 25 10/04/2024 Compr Propers tushar [employer] 2000 panel - Serum or Plasm a interpretati on and review of laboratory results Abnorm al Not Available Not Available 16:30:01 10/04/19 25 10/04/2024 CBC W Auto Diffe renti al panel - Blood leukocytes [#/volume] in blood by automated count 7.5 text: 4.0 - 10.7 x10e9/ L WBC 7.5 4.0 - 10.7 x10E9 /L 10/04 12:48 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 [facility] Not Available Not Available 11/13/2024 16:30:01 10/04/19 25 10/04/2024 CBC W Auto Diffe tawanda marrero panel - Blood erythrocytes [#/volume] in blood by automated count 4.71 text: 4.30 - 5.80 x10e12 /L RBC Count 4.71 4.30 - 5.80 x10E1 2/L 10/04 12:48 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 [facility] Not Available Not Available 11/13/2024 16:30:01 10/04/19 25 10/04/2024 CBC W Auto Diffnikita marrero panel - Blood hemoglobin [mass/volume ] in blood 14.3 g/dL low: 13.3g/ dLhigh : 17.5g/ dL Hemog lobin 14.3 13.3 - 17.5 g/dL 10/04 12:48 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 [facility] Not Available Not Available 11/13/2024 16:30:01 10/04/19 25 10/04/2024 CBC W Auto Cami marrero panel - Blood hematocrit [volume fraction] of blood by automated count 42.1 % low: 38.7%h igh: 51.1% Hemat ocrit 42.1 38.7 - 51.1 % 10/04 12:48 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 [facility] Not Available Not Available 11/13/2024 16:30:01 10/04/19 25 10/04/2024 CBC W Auto Diffe tawanda marrero panel - Blood MCV [entitic volume] by automated count 89.4 fL low: 80fLhi gh: 98fL MCV 89.4 80.0 - 98.0 fL 10/04 12:48 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 [facility] Not Available Not Available 11/13/2024 16:30:01 10/04/19 25 10/04/2024 CBC W Auto Diffe tawanda marrero panel - Blood MCH [entitic mass] by automated count 30.4 pg low: 26.7pg high: 33.6pg MCH 30.4 26.7 - 33.6 pg 10/04 12:48 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 [facility] Not Available Not Available 11/13/2024 16:30:01 10/04/19 25 10/04/2024 CBC W Auto Diffe tawanda marrero panel - Blood MCHC [mass/volume ] by automated count 34 g/dL low: 31.7g/ dLhigh : 36.3g/ dL MCHC 34.0 31.7 - 36.3 g/dL 10/04 12:48 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 [facility] Not Available Not Available 11/13/2024 16:30:01 10/04/19 25 10/04/2024 CBC W Auto Diffnikita marrero panel - Blood erythrocyte distribution width [ratio] by automated count 14.6 % low: 11.3%h igh: 14.8% RDW-C V 14.6 11.3 - 14.8 % 10/04 12:48 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 [facility] Not Available Not Available 11/13/2024 16:30:01 10/04/19 25 10/04/2024 CBC W Auto Diffnikita marrero panel - Blood platelets [#/volume] in blood by automated count 251 text: 150 - 420 x10e9/ L Plate let Count 251 150 - 420 x10E9 /L 10/04 12:48 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 [facility] Not Available Not Available 11/13/2024 16:30:01 10/04/19 25 10/04/2024 CBC W Auto Diffe tawanda marrero panel - Blood platelet mean volume [entitic volume] in blood by automated count 11 fL low: 7.8fLh igh: 11.4fL MPV 11.0 7.8 - 11.4 fL 10/04 12:48 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 [facility] Not Available Not Available 11/13/2024 16:30:01 10/04/19 25 10/04/2024 CBC W Auto Diffe tawanda marrero panel - Blood neutrophils/ 100 leukocytes in blood by automated count 55 % low: 41%hig h: 74% Neutr ophil % 55.0 41.0 - 74.0 % 10/04 12:48 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 [facility] Not Available Not Available 11/13/2024 16:30:01 10/04/19 25 10/04/2024 CBC W Auto Diffe renti al panel - Blood lymphocytes/ 100 leukocytes in blood by automated count 30.1 % low: 17%hig h: 47% Lymph ocyte % 30.1 17.0 - 47.0 % 10/04 12:48 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 [facility] Not Available Not Available 11/13/2024 16:30:01 10/04/19 25 10/04/2024 CBC W Auto Diffe renti al panel - Blood monocytes/10 0 leukocytes in blood by automated count 8.2 % low: 3%high : 11% Monoc yte % 8.2 3.0 - 11.0 % 10/04 12:48 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 [facility] Not Available Not Available 11/13/2024 16:30:01 10/04/19 25 10/04/2024 CBC W Auto Diffe renti al panel - Blood eosinophils/ 100 leukocytes in blood by automated count 5.5 % low: 0%high : 7% Eosin ophil % 5.5 0.0 - 7.0 % 10/04 12:48 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 [facility] Not Available Not Available 11/13/2024 16:30:01 10/04/19 25 10/04/2024 CBC W Auto Diffe renti al panel - Blood basophils/10 0 leukocytes in blood by automated count 0.7 % low: 0%high : 1.6% Basop hil % 0.7 0.0 - 1.6 % 10/04 12:48 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 [facility] Not Available Not Available 11/13/2024 16:30:01 10/04/19 25 10/04/2024 CBC W Auto Diffe renti al panel - Blood immature granulocytes /100 leukocytes in blood by automated count 0.5 % low: 0%high : 1% Immat ure Granu locyt es % 0.5 0.0 - 1.0 % 10/04 12:48 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 [facility] Not Available Not Available 11/13/2024 16:30:01 10/04/19 25 10/04/2024 CBC W Auto Diffe renti al panel - Blood neutrophils [#/volume] in blood by automated count 4.12 text: 1.60 - 7.50 x10e9/ L Neutr ophil Absol [place] 4.12 1.60 - 7.50 x10E9 /L 10/04 12:48 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 [facility] Not Available Not Available 11/13/2024 16:30:01 10/04/19 25 10/04/2024 CBC W Auto Diffe tawanda marrero panel - Blood lymphocytes [#/volume] in blood by automated count 2.25 text: 1.00 - 4.40 x10e9/ L Lymph ocyte Absol [place] 2.25 1.00 - 4.40 x10E9 /L 10/04 12:48 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 [facility] Not Available Not Available 11/13/2024 16:30:01 10/04/19 25 10/04/2024 CBC W Auto Diffnikita marrero panel - Blood monocytes [#/volume] in blood by automated count 0.61 text: 0.15 - 1.00 x10e9/ L Monoc yte Absol [place] 0.61 0.15 - 1.00 x10E9 /L 10/04 12:48 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 [facility] Not Available Not Available 11/13/2024 16:30:01 10/04/19 25 10/04/2024 CBC W Auto Diffe tawanda al panel - Blood eosinophils [#/volume] in blood 0.41 text: 0.00 - 0.60 x10e9/ L Eosin ophil Absol [place] 0.41 0.00 - 0.60 x10E9 /L 10/04 12:48 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 [facility] Not Available Not Available 11/13/2024 16:30:01 10/04/19 25 10/04/2024 CBC W Auto Diffe tawanda al panel - Blood basophils [#/volume] in blood by automated count 0.05 text: 0.00 - 0.13 x10e9/ L Basop hil Absol [place] 0.05 0.00 - 0.13 x10E9 /L 10/04 12:48 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 [facility] Not Available Not Available 11/13/2024 16:30:01 10/04/19 25 10/04/2024 CBC W Auto Diffe renti al panel - Blood interpretati on and review of laboratory results Normal Not Available Not Available 10/22 16:30:01 12/15/19 25 12/22/2024 COMPL IANCE DRUG KYM SIS, UR summary report (summary) FINAL ===== ===== ===== ===== ===== ===== ===== ===== ===== ===== ===== ===== ===== === TOXAS SURE COMP DRUG KYM SIS,U R ===== ===== ===== ===== ===== ===== ===== ===== ===== ===== ===== ===== ===== === Test Resul t Flag Units Drug Prese nt [place] codon e 241 ng/mg creat [place] morph one 125 ng/mg creat Norhy droco done 240 ng/mg creat Sourc es of hydro codon e inclu de sched uled presc ripti on medic ation s. [place] morph one and norhy droco done are expec [place]ana metab olite s of hydro codon e. [place] morph one is also avail able as a sched uled presc ripti on medic ation . Prega balin PRESE NT Cyclo benza mckenna PRESE NT Desme thylc yclob enzap rine PRESE NT Desme thylc yclob enzap rine is an expec t[place]ana metab olite of cyclo benza mckenna . Aceta minop hen PRESE NT Ibupr ofen PRESE NT Lidoc wilbert PRESE NT ===== ===== ===== ===== ===== ===== ===== ===== ===== ===== ===== ===== ===== === Test Resul t Flag Units Ref Range Creat inine 186 mg/dL >=20 ===== ===== ===== ===== ===== ===== ===== ===== ===== ===== ===== ===== ===== === Decla red Medic ation s: Medic ation list was not provi ded. ===== ===== ===== ===== ===== ===== ===== ===== ===== ===== ===== ===== ===== === For clini betito consu ltati on, pleas e call . ===== ===== ===== ===== ===== ===== ===== ===== ===== ===== ===== ===== ===== === Not Available [facility] ([facility]) [address] [facility], [place], [address], 12/22/2024 19:14:41 12/15/1912/22/2024 COMPL IANCE DRUG KYM SIS, UR pdf . Not Available [facility] ([facility]) [address] [facility], [place], [address], 12/22/2024 19:14:41 12/15/19 25 12/14/2024 HbA1c (hemo globi n A1c), blood HbA1c 8.1 Not Available In-Office Order Internal Use Only DO Not Attach Compendium DO Not Attach Compendium, Do Not Delete/merge, [id number] 12/14/2024 15:12:52 Result Notes None recorded. Problems Name Problem SNOMED Code Status Onset Date Resolution Date Notes Provider Name and Address Organization Details Recorded Time Gastroesophage al reflux disease 827067488 Active Blake Loyd PA-C Attn: Deannain g,[address] [facility], [place], [address] [place] [address] - [place] 6 16:20:49 Diverticulitis of colon 782836424 Active Blake Loyd PA-C Attn: Accountin g,[address] [facility], [place], [address], [place] - [facility] 5 15:25:28 Indigestion 824756481 Active Blake Loyd PA-C Attn: Accountin g,[address] [facility], [place], [address], [place] [facility] 5 15:25:28 Rib pain 319402281 Active Balke Loyd PA-C Attn: Accountin g,[address] [facility], [place], [address], [place] [facility] 5 15:25:28 Low back pain 861138421 Active Blake Loyd PA-C Attn: Accountin g,[address] [facility], [place], [address], [place] [facility] 6 17:01:51 Obesity 123261362 Active Blake Loyd PA-C Attn: Accountin g,[address] [facility], [place], [address], [place] [facility] 6 16:20:49 Tobacco user 677751489 Active Blake Loyd PA-C Attn: Accountin g,[address] [facility], [place], [address], [place] [facility] 6 16:20:49 Sinusitis 33928677 Active Blake Loyd PA-C Attn: Accountin g,[address] [facility], [place], [address], [place] [facility] 5 12:22:29 Hyperlipidemia 51692515 Active Blake Loyd PA-C Attn: Accountin g,[address] [facility], [place], [address], [place] [facility] 6 16:20:49 High hemoglobin A1c level 249102087 Active 2016 Blake Loyd PA-C Attn: Accountin g,[address] [facility], [place], [address], [place] [facility] 7 17:14:04 Vitamin D deficiency 15692358 Active 2016 Blake Loyd PA-C Attn: Accountjenise g,[address] [facility], [place], [address], [place] [facility] 7 17:14:24 Acute otitis media 2801771 Active 2016 Blake Loyd PA-C Attn: Accountjenise g,[address] [facility], [place], [address], [place] [facility] 7 14:34:12 Acute sinusitis 74383935 Active 2017 Blake Loyd PA-C Attn: Accountjenise g,[address] [facility], [place], [address], [place] [facility] 8 16:29:41 Adult health examination Active 2019 Blake Loyd PA-C Attn: Accountjenise g,[address] [facility], [place], [address], [place] [facility] 0 13:16:46 Costal chondritis 25426084 Active 2019 Blake Loyd PA-C Attn: Accountin g,[address] [facility], [place], [address], [place] [facility] 0 15:29:43 Serum vitamin B12 borderline low 728123053 Active 2019 Blake Loyd PA-C Attn: Accountin g,[address] [facility], [place], [address], [place] [facility] 0 15:35:43 Screening for malignant neoplasm of prostate Active 2020 Blake Loyd PA-C Attn: Accountin g,[address] [facility], [place], [address], [place] [facility] 1 17:22:45 Cramp in calf 968898519 Active 2020 Blake Loyd PA-C Attn: Accountjenise g,[address] [facility], [place], [address], [place] [facility] 1 10:09:03 Left sided abdominal pain 277759912 Active 2020 Blake Loyd PA-C Attn: Accountjenise g,[address] [facility], [place], [address], [place] [facility] 1 14:11:32 Nausea 446093377 Active 2020 Blake Loyd PA-C Attn: Accountin g,[address] [facility], [place], [address], [place] [facility] 1 12:20:00 Anxiety 99958117 Active 2020 Blake Loyd PA-C Attn: Accountjenise g,[address] [facility], [place], [address], [place] [facility] 1 18:01:20 Palpitations 88494240 Active 2020 Blake Loyd PA-C Attn: Accountin g,[address] [facility], [place], [address], [place] [facility] 1 11:00:10 Acute bronchitis 03835708 Active 2020 Blake Loyd PA-C Attn: Accountjenise g,[address] [facility], [place], [address], [place] [facility] 1 11:02:48 Medication monitoring Active 2022 Seven Macias MD Attn: Accountin g,[address] [facility], [place], [address], [place] [facility] 3 17:58:52 Screening for malignant neoplasm of colon Active 2022 Seven Macias MD Attn: Accountin g,[address] [facility], [place], [address], [place] [facility] 3 16:22:37 Type 2 diabetes mellitus 07632959 Active 2023 Seven Macias MD Attn: Zackery tidwell,[address] [facility], [place], [address], [facility] - [facility] 4 05:20:13 Pain in left arm 492276145 Active 2024 Seven Macias MD Attn: Zackery tidwell,[address], [place], [address], [facility] - [facility] 5 15:31:00 Problem Notes None recorded. Medical Equipment None Reported. Allergies Allergen ID Allergen Name Allergen Category Reaction Reaction Severity Criticality Documentation Date Start Date Code Code System Note Provider Name and Address Organization Details Recorded Time Product containin g penicilli n (product) medicatio n Not available Not available Not available 09/28/2014 [id number] SNKELSEY Michaels MA [facility] [place] - [facility] 5 12:19:49 Medications Name Sig Start Date Stop Date Status Note LastModified by Organization Details LastModified Time cyclobenzap rine 10 mg tablet TAKE 1 Tablet BY MOUTH THREE TIMES DAILY NEEDED active Not Available Not Available No t Available metformin 500 mg tablet active Not Available Not Available Not Available promethazin e-DM 6.25 mg-15 mg/5 mL oral syrup Take 5 mL every 4 hours by oral route as needed. 08/02 completed Not Available Not Available Not Available rabeprazole 20 mg tablet,linda yed release needed TO TAKE while taking Meloxicam active Not Available Not Available No t Available doxycycline hyclate 100 mg capsule TAKE 1 CAPSULE BY MOUTH TWICE DAILY 03/16 completed Not Available Not Available Not Available tizanidine 2 mg tablet TAKE 1 Tablet BY MOUTH IN THE MORNING AND 2 TABLETS AT BEDTIME 04/04 completed Not Available Not Available Not Available clindamycin HCl 300 mg capsule 08/21 completed Not Available Not Available Not Available azithromyci n 250 mg tablet TAKE 2 TABLETS (500 MG) BY ORAL ROUTE ONCE DAILY FOR 1 DAY THEN 1 TABLET (250 MG) BY ORAL ROUTE ONCE DAILY FOR 4 DAYS 11/30 completed Not Available Not Available Not Available ibuprofen 800 mg tablet TAKE 1 TABLET BY MOUTH THREE TIMES DAILY WITH FOOD active Not Available Not Available No t Available tizanidine 4 mg tablet TAKE 1 TABLET BY MOUTH EVERY 8 HOURS NEEDED FOR SPASMS 03/16 completed Not Available Not Available Not Available hydrocodone 5 mg-acetamin ophen 325 mg tablet 11/21 completed Not Available Not Available Not Available ondansetron HCl 8 mg tablet ONCE A DAY needed WITH PAIN medicatio n active Not Available Not Available No t Available meloxicam 15 mg tablet TAKE ONE TABLET BY MOUTH DAILY 12/14 completed Not Available Not Available Not Available ondansetron HCl 4 mg tablet TAKE 1 TABLET BY MOUTH EVERY 6 HOURS active Not Available Not Available No t Available prednisone 20 mg tablet 2 tabs po twice daily for 2 days. 1 tab twice daily for 5 days . 0.5 tab twice daily for 2 days ; 0.5 tab for one day. Take second dose every day at noon 11/30 completed Not Available Not Available Not Available clindamycin HCl 150 mg capsule TAKE ONE CAPSULE BY MOUTH EVERY 6 HOURS UNTIL drain removed active Not Available Not Available No t Available cyanocobala min (vit B-12) 1,000 mcg tablet TAKE 1 TABLET BY MOUTH TWICE DAILY WITH MEALS 03/16 completed Not Available Not Available Not Available ciprofloxac in 500 mg tablet Take 1 tablet every 12 hours by oral route for 10 days. active Not Available Not Available No t Available hydrocodone 10 mg-acetamin ophen 325 mg tablet TAKE 1 TABLET BY MOUTH TWICE DAILY SCHEDULED active Not Available Not Available No t Available tramadol 50 mg tablet 11/30 completed Not Available Not Available Not Available oxycodone-a cetaminophe n 10 mg-325 mg tablet TAKE 1-2 TABLETS BY MOUTH EVERY 6 HOURS NEEDED FOR PAIN. MAXIMUM DAILY DOSE IS 6 TABLETS 12/14 completed Not Available Not Available Not Available OneTouch Ultra Test strips active Not Available Not Available Not Available hydrocodone 7.5 mg-acetamin ophen 325 mg tablet TAKE 1 TABLET BY MOUTH TWICE DAILY 12/15 completed Not Available Not Available Not Available esomeprazol e magnesium 40 mg capsule,del ayed release TAKE 1 CAPSULE BY MOUTH ONCE DAILY IN THE MORNING BEFORE BREAKFAST active Not Available Not Available No t Available ranitidine 150 mg tablet Take 1 tablet twice a day by oral route before meals for 30 days. 08/02 completed Not Available Not Available Not Available gabapentin 300 mg capsule 03/16 completed Not Available Not Available Not Available mupirocin 2 % topical ointment APPLY TO INSIDE OF NOSE WITH COTTON SWAB TWICE DAILY UNTIL SURGERY active Not Available Not Available No t Available ergocalcife rol (vitamin D2) 1,250 mcg (50,000 unit) capsule TAKE 1 CAPSULE BY MOUTH EVERY WEEK WITH A MEAL active Not Available Not Available No t Available levofloxaci n 750 mg tablet TAKE 1 TABLET BY MOUTH EVERY DAY 03/16 completed Not Available Not Available Not Available methylpredn isolone 4 mg tablets in a dose pack TAKE BY MOUTH DIRECTED 03/16 completed Not Available Not Available Not Available albuterol sulfate HFA 90 mcg/actuati on aerosol inhaler INHALE 2 PUFFS BY MOUTH EVERY 4 HOURS active Not Available Not Available No t Available hydroxyzine HCl 10 mg tablet TAKE 1 TO 2 TABLETS BY MOUTH THREE TIMES DAILY NEEDED FOR ANXIETY 11/30 completed Not Available Not Available Not Available ondansetron 4 mg disintegrat ing tablet DISSOLVE 1 TABLET ON THE TONGUE THREE TIMES DAILY 03/16 completed Not Available Not Available Not Available doxycycline hyclate 100 mg tablet TAKE 1 TABLET BY MOUTH TWICE DAILY 08/21 completed Not Available Not Available Not Available omega-3 acid ethyl esters 1 gram capsule Take 2 capsules twice a day by oral route after meals for 30 days. 11/30 completed Not Available Not Available Not Available fenofibrate 160 mg tablet TAKE 1 TABLET BY MOUTH EVERY MORNING 08/02 completed Not Available Not Available Not Available pregabalin 75 mg capsule TAKE ONE CAPSULE BY MOUTH TWICE DAILY 03/16 completed Not Available Not Available Not Available pregabalin 150 mg capsule TAKE 1 Capsule BY MOUTH TWICE DAILY active Not Available Not Available No t Available pregabalin 225 mg capsule TAKE 1 Capsule BY MOUTH TWICE DAILY active Not Available Not Available No t Available Nexium 11/30 completed Not Available Not Available Not Available Dexilant 60 mg capsule, delayed release Take 1 capsule every day by oral route for 5 days. 08/02 completed Not Available Not Available Not Available Chantix Starting Month Box 0.5 mg (11)-1 mg (42) tablets in dose pack TAKE DIRECTED 08/12 completed Not Available Not Available Not Available lidocaine 5 % topical ointment APPLY TO THE AFFECTED AREA NEEDED FOR PAIN active Not Available Not Available No t Available Easy Touch Alcohol Prep Pads Use daily as instructe d active Not Available Not Available No t Available Pennsaid 20 mg/gram/act uation (2 %) topical soln in metered-dos e pump APPLY 2 PUMPS (40 MG) TO THE AFFECTED KNEE(S) BY TOPICAL ROUTE 2 TIMES PER DAY 11/30 completed Not Available Not Available Not Available OneTouch Ultra2 Meter active Not Available Not Available Not Available OneTouch Delica Plus Lancet 33 gauge active Not Available Not Available Not Available Vitals Date Recorded Body height Body mass index (BMI) Body weight Heart rate Oxygen saturation Systolic And Diastolic Provider Name and Address Organization Details Last Updated DateTime 5 185.42 cm 34 kg/m2 982761. 83 g 88 /min 97 % 129/88 mm[Hg] Crystal Loyd MA [facility] 5 15:02:37 Date Recorded Body height Body mass index (BMI) Body weight Heart rate Systolic And Diastolic Provider Name and Address Organization Details Last Updated DateTime 12/16/2023 185.42 cm 33 kg/m2 645262.0 9 g 113 /min 126/85 mm[Hg] Chel Hale MA [facility] 12/16/2023 15:27:50 Date Recorded Body height Body mass index (BMI) Body weight Oxygen saturation Heart rate Systolic And Diastolic Provider Name and Address Organization Details Last Updated DateTime 4 185.42 cm 33.4 kg/m2 762048. 87 g 98 % 87 /min 122/84 mm[Hg] Juliette Echeverria MA [facility] 4 15:27:34 Date Recorded Body height Body mass index (BMI) Body weight Heart rate Body temperature Oxygen saturation Systolic And Diastolic Provider Name and Address Organization Details Last Updated DateTime 3 185.42 cm 32.2 kg/m2 045013. 54 g 90 /min 98.1 [degF] 98 % 126/76 mm[Hg] Juliette Echeverria MA [facility] 3 15:39:01 Date Recorded Body height Body mass index (BMI) Body weight Heart rate Oxygen saturation Systolic And Diastolic Provider Name and Address Organization Details Last Updated DateTime 4 185.42 cm 33.4 kg/m2 154499. 87 g 90 /min 97 % 119/83 mm[Hg] Crystal Loyd MA [facility] 4 12:32:53 Social History Question Answer Notes LastModified by Organizat ion Details LastModified Time Tobacco Smoking Status Current Every Day Smoker Chel Hale MA [facility] [place] - [facility] 04/05/2020 12:38:35 Do You Have An Advance Directive? No Information not available 09/28/2014 Are You Blind Or Do You Have Difficulty Seeing? No Information not available 09/28/2014 What Is Your Level Of Caffeine Consumption? Moderate Information not available 09/28/2014 How Much Tobacco Do You Chew? None Information not available 09/28/2014 Are You Deaf Or Do You Have Serious Difficulty Hearing? No Information not available 09/28/2014 What Type Of Diet Are You Following? REGULAR Information not available 09/28/2014 Which Illicit Or Recreational Drugs Have You Used? N/a Information not available 09/28/2014 Education 12 Information no t available 09/28/2014 Are There Any Guns Present In Your Home? Yes Information not available 09/28/2014 Hard Of Hearing Or Deaf In One Or Both Ears? No Information not available 09/28/2014 Legally Blind In One Or Both Eyes? No Information no t available 09/28/2014 Marital Status Informatio n not available 09/28/2014 What Was The Date Of Your Most Recent Tobacco Screening? 12/14/2024 Information not available 12/14/2024 How Many Children Do You Have? 2 Information not available 12/10/2020 Performs Monthly Self-breast Exam? No Information no t available 09/28/2014 What Is Your Relationship Status? Information not available 12/10/2020 Do You Use Your Seat Belt Or Car Seat Routinely? Yes Information not available 12/10/2020 Seat Belts Used Routinely Yes Information not available 09/28/2014 Are You Sexually Active? No Information not available 12/10/2020 Smoke Alarm In Home Yes Information not available 09/28/2014 Do You Have Smoke And Carbon Monoxide Detectors In Your Home? Yes Information not available 12/10/2020 Are You Passively Exposed To Smoke? No Information no t available 12/10/2020 How Much Tobacco Do You Smoke? 1 PPD Information not available 04/05/2020 General Stress Level Medium Information not available 09/28/2014 Do You Use Sunscreen Routinely? No Information not available 09/28/2014 Has Tobacco Cessation Counseling Been Provided? Yes [email or web address] Information not available 07/09/2022 On What Date Was Tobacco Cessation Counseling Provided? 12/14/2024 Information not available 12/14/2024 Do You Have Difficulty Walking Or Climbing Stairs? No Information not available 09/28/2014 Sex: Male Functional Status Question Answer Note LastModified by Organizat ion Details LastModified Time Do you use any illicit or recreational drugs? No Information not available 12/10/2020 Do you or have you ever used any other forms of tobacco or nicotine? No [email or web address] Information not available 11/30/2022 What is your level of alcohol consumption? None Information not available 09/28/2014 Are you currently employed? Yes Information not available 12/10/2020 Do you have difficulty doing errands alone? No Information not available 09/28/2014 Are you able to care for yourself independently? 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 No Information not available 09/28/2014 What is your exercise level? None Information not available 09/28/2014 Mental Status Question Answer Note LastModified by Organizat ion Details LastModified Time Do you feel stressed (tense, restless, nervous, or anxious, or unable to sleep at night)? [id number] [email or web address] Information not available 12/10/2020 Do you have difficulty concentrating, remembering or making decisions? No Information no t available 09/28/2014 Family History Relationship Description Onset Age of this Age Resolved Age Notes LastModified by Organization Details LastModified Time Mother Diabetes mellitus Not available 2014 15:42:45 Mother Hypertensive disorder Not available 2014 15:42:45 Sister Diabetes mellitus Not available 2014 15:42:45 Medical History Condition Response Acid Reflux (GERD) Y Past Encounters Encounter ID Performer Location Encounter Start Date Encounter Closed Date Diagnosis/Indication Diagnosis SNOMED-CT Code Diagnosis ICD10 Code Diagnosis IMO Codes Diagnosis Note [id number] MD Hesham Majano (Adult Med) [address] [place] [address] 09/28/2014 11:44:21 09/28/2014 15:00:52 Rib pain 357927358 Diverticul itis of colon 890867721 Gastroesop hageal reflux disease 251524779 Indigestion 503764131 [id number] APRIL Lozano (Adult Med) [address] [place] [address] 11/16/2014 15:09:29 11/16/2014 16:06:52 Diverticulitis of colon 837243016 Gastroesop hageal reflux disease 069955343 Rib pain 050602697 Indigestion 138703818 Low back pain 951293024 Obesity 008297789 Tobacco user [id number] APRIL Lozano (Adult Med) [address] [place] [address] 05/17/2015 14:56:04 05/21/2015 15:01:25 Diverticulitis of colon 758114962 Gastroesop hageal reflux disease 958004821 Indigestion 416881338 Low back pain 262110789 Obesity 317573829 Rib pain 115242740 Tobacco user [id number] Adult [facility] th examination [id number] APRIL Lozano (Adult Med) [address] [place] [address] 08/30/2015 15:58:28 08/30/2015 16:25:14 Gastroesophageal reflux disease 736031380 K21.9 Low back pain 985021305 M54.5 Obesity 021111427 E66.9 Tobacco user 458547159 Z 72.0 Hyperlipidemia 29863197 E78.5 [id number] MD Hesham Enamorado (Adult Med) [address] [place] [address] 11/13/2016 14:03:54 11/13/2016 14:42:07 Acute otitis media 9881415 H66.91 Sinusitis 11727802 J32.9 Hyperlipidemia 52667135 E78.5 Obesity 168842047 E66.9 Low back pain 218546639 M54.5 Gastroesop hageal reflux disease 307858776 K21.9 High hemog lobin A1c level 348689941 R73.09 Vitamin D deficiency 347 00337 E55.9 [id number] MD Hesham Enamorado (Adult Med) [address] [place] [address] 12/04/2016 12:18:15 12/04/2016 15:23:05 Vitamin D deficiency 76320777 E55.9 Low back pain 529132432 M54.5 Gastroesop hageal reflux disease 990808024 K21.9 Obesity 082481987 E66.9 Hyperlipidemia 05179486 E78.5 High hemog lobin A1c level 856474828 R73.09 [id number] MD Hesham Enamorado (Adult Med) [address] [place] [address] 07/02/2017 15:02:22 07/02/2017 15:59:01 Vitamin D deficiency 50030344 E55.9 Tobacco user 697407206 Z 72.0 Diverticul itis of colon 046460504 K57.32 Gastroesop hageal reflux disease 964243991 K21.9 Low back pain 097429018 M54.5 Obesity 564095827 E66.9 Hyperlipidemia 88486584 E78.5 [id number] MD Hesham Enamorado [facility] (Adult Med) [address] [place] [address] 0 11/12/2017 15:01:20 11/16/2017 09:24:21 Vitamin D deficiency 51415266 E55.9 Gastroesop hageal reflux disease 288616991 K21.9 Hyperlipidemia 52654299 E78.5 Obesity 647008038 E66.9 Low back pain 211713843 M54.5 Tobacco user 718504058 Z 72.0 [id number] MD Hesham Enamorado (Adult Med) [address] [place] [address] 0 05/27/2018 14:50:00 05/27/2018 16:11:03 Gastroesophageal reflux disease 546446021 K21.9 Low back pain 766208787 M54.5 Vitamin D deficiency 347 28580 E55.9 Tobacco user 420043199 Z 72.0 Obesity 512745170 E66.9 Hyperlipidemia 84470798 E78.5 [id number] MD Hesham Enamorado (Adult Med) [address] [place] [address] 0 12/09/2018 14:56:26 12/12/2018 09:57:53 Low back pain 527760121 M54.5 Tobacco user 687474340 Z 72.0 Gastroesop hageal reflux disease 605847820 K21.9 Vitamin D deficiency 347 17657 E55.9 Hyperlipidemia 60696020 E78.5 Obesity 194426915 E66.9 [id number] MD Hesham Enamorado (Adult Med) [address] [place] [address] 0 06/16/2019 15:52:41 06/16/2019 16:46:08 Acute sinusitis 06753125 J01.90 Tobacco user 113869592 Z 72.0 [id number] MD Hesham Enamorado (Adult Med) [address] [place] [phone] 0 04/05/2020 12:23:32 04/05/2020 13:22:02 Vitamin D deficiency 86391960 E55.9 Low back pain 154981783 M54.5 Hyperlipidemia 02044134 E78.5 Gastroesop hageal reflux disease 855933905 K21.9 Adult heal th examination 874100924 Z00.00 [id number] MD Hesham Enamorado (Adult Med) [address] [place] [address] 0 08/02/2020 14:58:29 08/02/2020 16:28:16 Vitamin D deficiency 32561914 E55.9 Costal chondritis 739273 04 M94.0 Low back pain 536560850 M54.5 Serum latoya min B12 borderline low 553285559 R79.89 Gastroesop hageal reflux disease 004575006 K21.9 Hyperlipidemia 44468737 E78.5 Tobacco user 656149126 Z 72.0 [id number] MD Hesham Enamorado (Adult Med) [address] [place] [address] 0 12/10/2020 16:35:25 12/10/2020 17:30:31 Vitamin D deficiency 70575495 E55.9 Hyperlipidemia 20413861 E78.5 High hemog lobin A1c level 490909429 R73.09 Tobacco user 431519307 Z 72.0 Low back pain 921735825 M54.5 Costal chondritis 874059 04 M94.0 Serum latoya min B12 borderline low 191248550 R79.89 Screening for malignant neoplasm of prostate 756644023 Z12.5 [id number] MD Hesham Enamorado (Adult Med) [address] [place] [address] 0 01/22/2021 12:01:31 01/22/2021 13:53:20 Cramp in calf 644713686 R25.2 [id number] MD Hesham Enamorado (Adult Med) [address] [place] [address]23[address] 0 03/17/2021 13:33:11 03/17/2021 14:27:32 Acute sinusitis 52455020 J01.90 Left sided abdominal pain 624087901 R10.9 Gastroesop hageal reflux disease 973119608 K21.9 High hemog lobin A1c level 978918749 R73.09 Hyperlipidemia 59427046 E78.5 Low back pain 472855023 M54.5 Serum latoya min B12 borderline low 769124854 R79.89 Tobacco user 247301190 Z 72.0 Vitamin D deficiency 347 12687 E55.9 [id number] MD Hesham Enamorado (Adult Med) [address] [place] [address] 0 08/12/2021 10:25:55 08/12/2021 11:27:49 Anxiety 65300301 F41.9 Palpitations 65640318 R0 0.2 Low back pain 641249111 M54.50 Acute bronchitis 8405063 2 J20.9 [id number] MD Hesham Enamorado (Adult Med) [address] [place] [address]71[address] 0 01/23/2022 15:38:24 01/26/2022 11:33:48 Hyperlipidemia 93797872 E78.5 Palpitations 41582548 R0 0.2 Vitamin D deficiency 347 79641 E55.9 Serum latoya min B12 borderline low 188419263 R79.89 Low back pain 174633635 M54.50 Screening for malignant neoplasm of prostate 697251962 Z12.5 Gastroesop hageal reflux disease 197812146 K21.9 High hemog lobin A1c level 188279711 R73.09 [id number] MD Hesham Majano (Adult Med) [address] [place] [address]663[address] 0 07/09/2022 16:44:22 07/10/2022 13:03:52 Serum vitamin B12 borderline low 615617361 R79.89 Low back pain 238178378 M54.50 [id number] MD Hesham Majano (Adult Med) [address] [place] [address] 87195[address]687 0 11/30/2022 17:12:28 12/01/2022 11:42:25 Obesity 224414252 E66.9 Hyperlipidemia 36412265 E78.5 Vitamin D deficiency 347 53010 E55.9 Low back pain 253996060 M54.50 Medication monitoring 39 1571186 Z51.81 [id number] MD Hesham Majano (Adult Med) [address] [place] [address] 27561-160 0 06/03/2023 15:25:58 06/08/2023 15:53:17 Obesity 862724879 E66.9 Gastroesop hageal reflux disease 185698919 K21.9 High hemog lobin A1c level 161569937 R73.09 Hyperlipidemia 43130197 E78.5 Low back pain 932526599 M54.50 Screening for malignant neoplasm of prostate 566617098 Z12.5 Vitamin D deficiency 347 51169 E55.9 Tobacco user 188928127 Z 72.0 Screening for malignant neoplasm of colon 884657567 Z12.11 Pt will call GI when he feels ready Smoker 48002017 F17.804 [id number] MD Hesham Majano (Adult Med) [address] [place] [address] 17773-176 0 12/16/2023 15:16:12 12/17/2023 08:08:36 Type 2 diabetes mellitus 93714452 E11.9 Increase metformin to BID Vitamin D deficiency 347 53847 E55.9 Low back pain 598290329 M54.50 [id number] MD Hesham Majano (Adult Med) [address] [place] [address] 25384-936 0 03/16/2024 15:17:27 03/16/2024 20:59:08 Obesity 590004768 E66.8 Low back pain 942770802 M54.50 Tobacco user 071613232 Z 72.0 Type 2 chapis betes mellitus 78412425 E11.9 Increase metformin to BID [id number] MD Hesham Majano (Adult Med) [address] [place] [address] 31627-882 0 08/21/2024 12:03:43 08/22/2024 14:47:33 Hyperlipidemia 93082970 E78.5 Obesity 572977853 E66.9 Sinusitis 05859125 J32.9 Vitamin D deficiency 347 81260 E55.9 [id number] MD Hesham Majano (Adult Med) [address] [place] [address] 46077-185 0 12/14/2024 14:42:09 12/18/2024 14:21:32 Type 2 diabetes mellitus 41460943 E11.9 Increase metformin to BID Anxiety 32730738 F41.9 Gastroesop hageal reflux disease 000784926 K21.9 Hyperlipidemia 03974785 E78.5 Low back pain 591357223 M54.50 Obesity 924446715 E66.9 Vitamin D deficiency 347 94847 E55.9 Medication monitoring 39 9008934 Z51.81 Pain in left arm 4436995 00 M79.602 [id number] F/U pain management . Discussed tapering narcotics Health Concerns Section Related Observation LastModified by Organization Detai ls LastModified Time None Recorded Concern Status LastModified by Organization Details LastModified Time None Recorded Advance Directives Directive N: Payers Insurance Date Sequence Insurance Name Policy Number Policy Hough Covered Member ID Hough Member ID Guarantor Name 08/30/2015 1 [place] [id number] Samantha Wallerlitzy [id number] Michael Abbe 12/18/2024 1 [place] [id number] Michael Wallerlitzy [id number] Michael Christinlitzy 03/16/2024 1 [place] [id number] Michael Christinlitzy [id number] Michael Mcadams 03/16/2024 2 [place] [id number] Michael Wallerlitzy [id number] Michael Mcadams Notes Date Note Type Note Provider Name and Address Organization Details Recorded Time 06/03/2023 text/html Here for f/u. Has been referred to ortho surgery who has planned CTS and rotator cuff repair Seven Macias MD Attn: Accounting[address] [place], [address], [place] - [facility] 06/03/2023 16:25:57 12/16/2023 text/html Here for routine check. Fbs averaging 115mg/dl Seven Macias MD Attn: Accounting[address] [place], [address], [place] [facility] 12/16/2023 16:23:43 03/16/2024 text/html Here for DM f/u. marked improvement with increase in metformin dose. Is scheduled for corrective surgery on left shoulder Seven Macias MD Attn: [address] [place], [address], [place] [facility] 03/16/2024 16:36:06 08/21/2024 text/html Has seen ortho and will be scheduled for neck surgery in about two weeks. Has had sinus drainage for the past ten days. has frontal headache and productive cough Seven Macias MD Attn: Accounting[address] [facility], [place], [address], [facility] - [facility] 08/21/2024 12:53:39 12/14/2024 text/html Here for routine f/u. Recent cervical disc replacement. Has persistence of left UE pain. Is currently being seen by PM who referred him here for pain management Seven Macias MD Attn: Accounting[address] [facility], [place], [address], [place] [facility] 12/14/2024 15:38:58
--- OUTSIDE RECORDS SUMMARY | 2025-07-13 02:57 | XMS_ITS | Clinical Summary ---
Author Organization [facility] Address [address] [place] [address] Care Team Providers Care Bilingual Social Worker Name Role Phone Seven Macias MD Primary Care Provider [phone] Source Comments [facility],non-owned Affiliates and Associated Physician Practices is amultiple site organization consisting of ambulatory clinics and hospital sitesin [place], [place], [place] and [place]. This disclosure is being madepursuant to the Care Everywhere program and may not contain all information available regarding this patient. Last updated 18.[facility] Allergies Active Allergy Reactions Criticality Noted Date Comments Penicillins Urticaria High 09/03/2021 Medications * Be aware that medications may not be up to date on this document. Alwaysverify current medications with the patient. pregabalin (Lyrica) 75 MG capsule Take 1 (one) capsule by mouth 2 times daily 09/29/2022 Active esomeprazole (NexIUM) 40 MG capsule 1 (one) capsule Active ergocalciferol (Drisdol) 1.25 MG (25980 UT) capsule Take 1 (one) capsule by mouth every 7 days Active meloxicam (Mobic) 15 MG tablet Take 1 (one) tablet by mouth once daily 10/21/2022 Active Aurora-3 Fatty Acids (fish oil) 500 MG capsule Take by mouth once daily Active metFORMIN (Glucophage) 500 MG tablet Take 1 (one) tablet by mouth 2 times daily with morning and evening meal Active cyclobenzaprine (Flexeril) 10 MG tablet Take 1 (one) tablet by mouth 3 times daily as needed for Muscle Spasms Active HYDROcodone-jessica taminophen ([place]) 10-325 MG tablet Take 1 (one) tablet by mouth every 6 hours as needed for Pain Active aspirin (Aspirin) 81 MG chew tablet Take 1 (one) tablet by mouth once daily Active Active Problems Problem Noted Date Diagnosed Date Cervical radiculopathy 09/29/2024 Pre-operative cardiovascular examination 023 Social History Tobacco Use Types Packs/Day Years Used Date Smoking Tobacco: Every Day Cigarettes Smokeless Tobacco: Never Tobacco Cessation:Ready to Q uit: Not Asked; Counseling Given: Not Answered Alcohol Use Standard Drinks/Week Comments Not Currently 0 (1 standard drink = 0.6 oz pur e alcohol) once a year AUDIT-C Answer Date Recorded Q1: How often [...] medical care, and heating? Somewhat hard 09/29/2024 [facility] - Occupational Stress [...] the past 12 m [facility], were you homeless or living in a residential (including now)? No 09/29/2024 Sex and Gender Information Value Date Recorded Sex Assigned at Not on file Legal Sex Male 4:02 PM [employer] Gender Identity Not on file Sexual Orientation Not on file Last Filed Vital Signs Vital Sign Reading Time Taken Comments Blood Pressure 133/83 09/30/2024 11:00 AM [employer] Pulse 78 09/30/2024 11:00 AM [employer] Temperature 36.6 C (97.8 F) 09/30/2024 4:08 AM [employer] BUFFER Respiratory Rate 16 09/30/2024 4:08 AM P[employer]IC [employer]AT BUFFER Oxygen Saturation 95% 09/30/2024 11:00 AM [employer]FFER Inhaled Oxygen Concentration - - Weight 114.8 kg (253 lb) 09/29/2024 2:23 PM [employer] Height 182.9 cm (6') 09/29/2024 2:23 PM [employer] Body Mass Index 34.31 09/29/2024 2:23 PM [employer] Plan of Treatment Health Maintenance Due Date Last Done Comments COLOGUARD (AGES 45-75) - COL ON CA SCREENING 1971 COLON MONITORING 1971 COLONOSCOPY - COLON CA SCREENING 1971 CT COLONOGRAPHY - COLON CA SCREENING 1971 Colorectal Cancer Screening 1971 FIT - COLON CA SCREENING 1971 FLEX SIG - COLON CA SCREENING 1971 LIPID TESTING 1971 HIV SCREENING 1986 HEPATITIS C SCREENING 08/14/1989 DTAP/TDAP/TD VACCINES (1 - Tdap) 1990 HEPATITIS B VACCINE (1 of 3 - 19+ 3-dose series) 1990 PNEUMOCOCCAL VACCINE 50+ (1 of 2 - PCV) 1990 ZOSTER VACCINE (1 of 2) 2021 DEPRESSION SCREENING 08/23/2024 COVID-19 VACCINE (1 - 2024-2 6 season) 2025 INFLUENZA VACCINE (#1) 2025 HIB VACCINE Aged Out No longer eligi ble based on patient's age to complete this topic HPV VACCINE Aged Out No longer eligi ble based on patient's age to complete this topic MENINGOCOCCAL (Group B) VACC INE SHARED DECISION-MAKING Aged Out No longer eligibl e based on patient's age to complete this topic MENINGOCOCCAL GROUPS A/C/Y/W VACCINE Aged Out No longer eligible b ased on patient's age to complete this topic Medical Devices Implanted Type Area [employer] Device Identifier Shelf Expiration Date Model / Serial / Lot Slnt Tiss Clsr Vistaseal Fbrn 4ml Frz Implanted:Qty: 1 on 09/29/2024 by Simeon Guzman MD at [facility] N/A: Spine Cervical [employer] 05/17/2026 [id number] / / [id number] Insurance PAYOR GENERIC PAYOR GENERIC * Guarantor: LULU RARUPERT Account Type Relation to Patient Date of Phone Billing Address Personal/Family Employer * Guarantor: [employer] Account Type Relation to Patient Date of Phone Billing Address Personal/Family Employer Advance Directives * Full Code (Latest Code Status on File) Date Activated Date Inactivated Comments 09/29/2024 2:27 PM 09/30/2024 5:34 PM Care Teams Bilingual Social Worker Relationship Specialty [place] [address] [place] [address] [phone] PCP - General Gastroenterology 09/04/22
[2025-07-13 08:31] VITALS: BP 125/86; PULSE 84; RESP 16; TEMP 36.5; O2SAT 100; BMI 34.4
[2025-07-13] MEDS: LACTATED RINGERS 1,000 ML 150 ML IV CONT (08:44)
--- NOTE | 2025-07-13 08:46 | WPDANESEPPF ---
Anes - Initial Pre Proc Eval Procedure: Operation Date: 07/13/25 09:30 Proposed Procedures p Screening Colonoscopy - Ludwig Ireland MD Date/Time: 07/13/25 08:46 Surgeon: Ludwig Ireland MD Pre Op Diagnosis: Screening Patient Data Age: 54 Gender: M Height: 1.83 m Weight: 115.1 kg Last Vital Signs Temp 36.5 C 07/13/25 08:31 Pulse 84 07/13/25 08:31 Resp 16 07/13/25 08:31 BP 125/86 07/13/25 08:31 Pulse Ox 100 07/13/25 08:31 O2 Del Method Room Air 07/13/25 08:31 Allergies Allergy/AdvReac Type Severity Reaction Status Date / Time Penicillins Allergy Mild HIVES Verified 07/13/25 08:28 Home Medications ?Medication ?Instructions ?Recorded ?Confirmed ?Type ergocalciferol (vitamin D2) 1,250 1,250 mcg PO WEEKLY 02/18/21 07/13/25 History mcg (50,000 unit) capsule hydrocodone 7.5 mg-acetaminophen 7.5 tablet PO BID PRN Pain 02/18/21 07/13/25 History 325 mg tablet esomeprazole magnesium 40 mg 40 mg PO DAILY #90 caps 02/12/23 07/13/25 Rx capsule,delayed release (Nexium) metformin 500 mg tablet 500 mg PO BID 06/28/25 07/13/25 History pravastatin 10 mg tablet 10 mg PO DAILY 06/28/25 07/13/25 History pregabalin 225 mg capsule 225 mg PO BID 06/28/25 07/13/25 History Laboratory Tests 07/13/25 08:38 POC Capillary Glucose 103 mg/dl (65-105) Patient hx anesthesia problems: none Family hx anesthesia problems: none Results Review: All pre-operative results and documents have been reviewed as part of the pre-operative evaluation. [facility] Past Medical History Medical History Colon cancer screening Bright red blood per rectum Gastroesophageal reflux disease Tobacco abuse Family History Family History Father Hypertension Mother Hypertension Diabetes mellitus Sibling Diabetes mellitus Social History Social History Smoking packs per day: 1 Smoking cigarettes per day: 20.0 Years smoked: 20 Smoking pack-years: 20.00 Smoking status: Current every day smoker Tobacco type: cigarettes Alcohol intake: never Drinks per week: 1 Substance use: never Substance use type: does not use Living arrangements: with family Occupation/Education: occupation Additional occupation/education comments: [employer] Gender identity (if verbalized by the patient): Male Sexual Orientation (if Verbalized by the Patient): Straight or Heterosexual Spiritual care concerns: No Agree to blood products: Yes Anes - Eval Final PreProcedure Day of Procedure 07/13/25 08:46 Patient weight: obese Heart: regular rate and rhythm Lungs: clear to auscultation Airway: Mallampati scale class II Neurological: alert and oriented ASA classification: III Emergent: no Anesthetic plan: proceed Anesthesia type and monitoring: general GIVS and standard monitoring Results Review: All pre-operative results and documents have been reviewed as part of the pre-operative evaluation. Informed Consent: The patient's anesthetic plan and its attendant risks and benefits were discussed with the patient/family/POA. Questions were solicited and answers provided to the satisfaction of the patient/family/POA.
--- NOTE | 2025-07-13 09:14 | PM.IMHP ---
H&P: HPI History of Present Illness Date/Time: 07/13/25 09:14 Chief Complaint: Screening colonoscopy Narrative: This is the patient's first colonoscopy. There are no GI symptoms and there is no family history of colorectal cancer. Review of Systems Review of Systems: All systems reviewed & are unremarkable except as noted in HPI and below PMFSH Past Medical History Medical History Colon cancer screening Bright red blood per rectum Gastroesophageal reflux disease Tobacco abuse Family History Family History Father Hypertension Mother Hypertension Diabetes mellitus Sibling Diabetes mellitus Social History Social History Smoking packs per day: 1 Smoking cigarettes per day: 20.0 Years smoked: 20 Smoking pack-years: 20.00 Smoking status: Current every day smoker Tobacco type: cigarettes Alcohol intake: never Drinks per week: 1 Substance use: never Substance use type: does not use Living arrangements: with family Occupation/Education: occupation Additional occupation/education comments: [employer] Gender identity (if verbalized by the patient): Male Sexual Orientation (if Verbalized by the Patient): Straight or Heterosexual Spiritual care concerns: No Agree to blood products: Yes Meds Home Medications and Allergies Home Medications ?Medication ?Instructions ?Recorded ?Confirmed ?Type ergocalciferol (vitamin D2) 1,250 1,250 mcg PO WEEKLY 02/18/21 07/13/25 History mcg (50,000 unit) capsule hydrocodone 7.5 mg-acetaminophen 7.5 tablet PO BID PRN Pain 02/18/21 07/13/25 History 325 mg tablet esomeprazole magnesium 40 mg 40 mg PO DAILY #90 caps 02/12/23 07/13/25 Rx capsule,delayed release (Nexium) metformin 500 mg tablet 500 mg PO BID 06/28/25 07/13/25 History pravastatin 10 mg tablet 10 mg PO DAILY 06/28/25 07/13/25 History pregabalin 225 mg capsule 225 mg PO BID 06/28/25 07/13/25 History Allergies Allergy/AdvReac Type Severity Reaction Status Date / Time Penicillins Allergy Mild HIVES Verified 07/13/25 08:28 Vital Signs Vital Signs - 24 hr 07/13/25 08:31 Temperature 97.7 F Pulse Rate 84 Respiratory Rate 16 Blood Pressure 125/86 Pulse Oximetry 100 Oxygen Delivery Room Air Exam Const: General: cooperative and healthy appearing Resp: Effort & Inspection: normal respiratory effort and able to speak in complete sentences Auscultation: clear to auscultation bilaterally Cardio: Rate: regular rate Rhythm: regular rhythm GI: Inspection: normal to inspection GI Palp: No No hepatosplenomegaly present Auscultation: normal bowel sounds Rectal Exam: deferred Skin: General skin exam: normal color Psych: Appearance: grossly normal Mental Status: mental status grossly normal Assessment and Plan Assessment and plan (1) Colon cancer screening: Code(s): Z12.11 - Encounter for screening for malignant neoplasm of colon Status: Acute Assessment and Plan: The patient is deemed a good candidate for the procedure. Consent signed. Will proceed.
[2025-07-13 09:38] VITALS: BP 101/58; PULSE 93; RESP 15; O2SAT 93
--- NOTE | 2025-07-13 09:38 | S_PTH ---
PATIENT: Michael Mcadams LOC: [facility] U#:[id number] AGE/SX: 54/M ROOM: RE07/13/[address]: uLdwig Ireland MD : 1970 BED: DIS: 07/13/2025 SPEC #: [id number] RECD: 07/13/25 10:09 STATUS: LIZ REQ #: [id number] BRINDA: 07/13/25 09:[address]: Ludwig Ireland DEPT: [facility] Surgical RECD BY: May Jin ENTERED: 07/13/25 10:09 SP TYPE: Surgical OTHR DR: Wilver HicksMD Tissues: A - Colon Polypectomy Procedures: Hematoxylin and Eosin Stain Gross and Microscopic Level 4
[2025-07-13 09:48] VITALS: BP 103/59; PULSE 90; RESP 22; O2SAT 96
[2025-07-13 09:58] VITALS: BP 118/73; PULSE 87; RESP 23; O2SAT 98
== END 2025-07-13 10:09 | disposition home or self-care (01) ==
PROVIDERS: PCP Internal Medicine; Visit Provider Internal Medicine Gastroenterology
PROC: 0DJD8ZZ Inspection of Lower Intestinal Tract, Via Natural or Artificial Opening Endoscopic (ICD-10-PCS; CPT 45378; principal; 2025-07-13 09:30)
DX: Z12.11 Encounter for screening for malignant neoplasm of colon (principal); D12.5 Benign neoplasm of sigmoid colon; K64.8 Other hemorrhoids; K57.30 Diverticulosis of large intestine without perforation or abscess without bleeding; K21.9 Gastro-esophageal reflux disease without esophagitis; F17.210 Nicotine dependence, cigarettes, uncomplicated; E66.9 Obesity, unspecified; Z68.34 Body mass index [BMI] 34.0-34.9, adult; Z79.891 Long term (current) use of opiate analgesic; Z79.84 Long term (current) use of oral hypoglycemic drugs
CPT/HCPCS: 45385; 82948; 88305; J2003; J2704; J7120